=== PATIENT | female | born 1960 | race Caucasian/White ===

== ENCOUNTER → 2016-07-24 | Outpatient (CLI) | payer OTHER ==
[~2016-07-24] MED LIST: ARIP1TAB5 PO; CLON0.1T PO; HYDR1CAP30 PO; IBUP800T23 PO; LISI10TA3 PO; METO25TA3 PO; NITR100C4 PO; REME30TA PO; TRAZ50TA12 PO; VENL75TA PO
[2016-07-24 08:47] LABS: AUTOMATED NEUTROPHIL # 2.5 TH/MM3 (1.8-7.7); BASOPHIL % 0.6 % (0.0-2.0); EOSINOPHIL # 0.1 TH/MM3 (0-0.4); EOSINOPHIL % 1.3 % (0.0-4.0); LYMPH % 32.7 % (9.0-44.0); LYMPHOCYTE # 1.4 TH/MM3 (1.0-4.8); MEAN CELL VOLUME 112.9 FL (80.0-100.0); MEAN CORPUSCULAR HEMOGLOBIN 39.1 PG (27.0-34.0); MEAN CORPUSCULAR HGB CONC 34.6 % (32.0-36.0); NEUT % 59.4 % (16.0-70.0); PLATELET COUNT 45 TH/MM3 (150-450); RED BLOOD COUNT 3.28 MIL/MM3 (4.00-5.30); RED CELL DISTRIBUTION WIDTH 14.8 % (11.6-17.2); WHITE BLOOD COUNT 4.2 TH/MM3 (4.0-11.0)
[2016-07-24 08:52] LABS: HEMO FLAGS AUTO DIFF
[2016-07-24 09:12] LABS: ALKALINE PHOSPHATASE 123 U/L (45-117); ALT (GPT) 67 U/L (10-53); ANION GAP 9 MEQ/L (5-15); AST (GOT) 90 U/L (15-37); BLOOD UREA NITROGEN 9 MG/DL (7-18); CHLORIDE 102 MEQ/L (98-107); GLOMERULAR FILTRATION RATE 68 ML/MIN (>89); GLUCOSE,FASTING 121 MG/DL (74-99); HDL CHOLESTEROL 15.1 MG/DL (40.0-60.0); LDL CHOLESTEROL 95 MG/DL (0-99); POTASSIUM 3.9 MEQ/L (3.5-5.1); SODIUM (NA) 137 MEQ/L (136-145); TOTAL BILIRUBIN ADULT 1.5 MG/DL (0.2-1.0)
[2016-07-24 09:36] LABS: PLATELET ESTIMATE SMEAR LOW (NORMAL); PLATELET MORPHOLOGY NORMAL (NORMAL); SCAN/DIFF AUTO DIFF CONFIRMED; TARGET CELLS 1+ (NORMAL)
== END ==
LOC: CLAB 08:27
PROVIDERS: ATTEND Family Medicine
DX: F10.20 Alcohol dependence, uncomplicated (principal); L82.1 Other seborrheic keratosis; F32.9 Major depressive disorder, single episode, unspecified; F91.9 Conduct disorder, unspecified; F17.200 Nicotine dependence, unspecified, uncomplicated; Z59.0 Homelessness
CPT/HCPCS: 36415; 80053; 80061; 84443; 85025

== ENCOUNTER 2016-11-05 08:48 | Emergency (ER) | payer OTHER ==
[~2016-11-05] VITALS: Ht 157.5 cm; Wt 91.0 kg
[~2016-11-05 08:48] MED LIST changes: -CLON0.1T PO; -NITR100C4 PO; -REME30TA PO
[2016-11-05 08:54] VITALS: BP 112/65; PULSE 81; RESP 18; TEMP 97.7; O2SAT 89
[2016-11-05 09:02] VITALS: BP 112/65; PULSE 79; RESP 18; TEMP 97.7; O2SAT 96
[2016-11-05] MEDS ORDERED: SODIUM CHLORIDE 0.9% FLUSH 10 ML FLUSH IVF PRN ×2 (09:15→09:45)
[2016-11-05] MEDS ORDERED: MORPHINE SULFATE 4 MG/ML INJ IV PUSH ONE (09:15)
[2016-11-05] MEDS ORDERED: ONDANSETRON HCL 4 MG/2 ML VIAL IV PUSH ONE (09:15)
[2016-11-05 09:52] VITALS: O2SAT 97
[2016-11-05 09:56] LABS: AUTOMATED NEUTROPHIL # 1.9 TH/MM3 (1.8-7.7); BASOPHIL % 0.3 % (0.0-2.0); EOSINOPHIL # 0.3 TH/MM3 (0-0.4); EOSINOPHIL % 5.3 % (0.0-4.0); HEMATOCRIT 37.1 % (35.0-46.0); HEMO FLAGS DIFF FINAL; LYMPH % 58.6 % (9.0-44.0); LYMPHOCYTE # 3.5 TH/MM3 (1.0-4.8); MEAN CELL VOLUME 108.9 FL (80.0-100.0); MEAN CORPUSCULAR HEMOGLOBIN 35.9 PG (27.0-34.0); MONO % 3.9 % (0.0-8.0); NEUT % 31.9 % (16.0-70.0); PLATELET COUNT 114 TH/MM3 (150-450); RED CELL DISTRIBUTION WIDTH 14.1 % (11.6-17.2); WHITE BLOOD COUNT 6.1 TH/MM3 (4.0-11.0)
[2016-11-05 10:12] LABS: MUCUS URINE FEW /lpf (OCC); SQUAMOUS EPITHELIAL CELL URINE 1 /hpf (0-5)
[2016-11-05 10:14] LABS: BACTERIA, URINE MANY /hpf; BLOOD, URINE NEG (NEG); GLUCOSE,URINE NEG (NEG); HYALINE CAST, URINE 3 /lpf (RARE); KETONE, URINE NEG (NEG); URINE COLOR YELLOW (YELLW/STRAW)
[2016-11-05] MEDS ORDERED: TETANUS/DIPHTHERIA TOXOID ADULT 0.5 ML VIAL IM ONE (10:15)
[2016-11-05 10:16] LABS: NITRITE,URINE POS (NEG)
[2016-11-05 10:17] LABS: AMPHETAMINE, URINE NEG (NEG); BARBITURATES, URINE NEG (NEG); COCAINE, URINE POS (NEG); COMMENT (UR) CATH-CULTURE IND; CULTURE IF INDICATED CATH CULTURE IND
[2016-11-05 10:30] VITALS: BP 117/67; PULSE 72; RESP 18; TEMP 97.7; O2SAT 97
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
[2016-11-05] MEDS ORDERED: NITROFURANTOIN MONOHYD MACROCR 100 MG CAP PO ONE (11:00)
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
[2016-11-05 12:05] LABS: ALKALINE PHOSPHATASE 104 U/L (45-117); ALT (GPT) 63 U/L (10-53); ANION GAP 6 MEQ/L (5-15); AST (GOT) 97 U/L (15-37); BICARBONATE 31.4 MEQ/L (21.0-32.0); CHLORIDE 109 MEQ/L (98-107); GLOMERULAR FILTRATION RATE 81 ML/MIN (>89); POTASSIUM 4.8 MEQ/L (3.5-5.1); SODIUM (NA) 146 MEQ/L (136-145); TOTAL BILIRUBIN ADULT 0.4 MG/DL (0.2-1.0)
[2016-11-05 12:06] LABS: BLOOD UREA NITROGEN 17 MG/DL (7-18); CREATINE KINASE 179 U/L (26-192)
[2016-11-05 12:53] VITALS: BP 112/71; PULSE 76; RESP 18; O2SAT 96
[2016-11-05] MEDS ORDERED: SODIUM CHLOR 0.9% 1000 ML INJ 1,000 ML IV ONE (13:30)
[2016-11-05 16:30] VITALS: BP 115/74; PULSE 71; RESP 18; O2SAT 96
[2016-11-05] MEDS ORDERED: LORazepam 2 MG/ML VIAL IV PUSH PRN ×4 (21:45)
[2016-11-05] MEDS ORDERED: LORazepam 2 MG TAB PO PRN (21:45)
[2016-11-05] MEDS ORDERED: FLUMAZENIL 0.5 MG/5 ML VIAL IV PUSH PRN (21:45)
[2016-11-05] MEDS ORDERED: LORazepam 1 MG TAB PO PRN (21:45)
[2016-11-06] MEDS ORDERED: NITR100C4 PO (06:35)
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
[2016-11-06] MEDS ORDERED: NITROFURANTOIN MONOHYD MACROCR 100 MG CAP PO ONE (06:45)
[2016-11-06 07:20] VITALS: BP 159/104; PULSE 80; RESP 18; O2SAT 94
[2016-11-06 09:08] VITALS: BP 173/88; PULSE 96; RESP 20; O2SAT 96
[2016-11-06 10:42] VITALS: BP 213/98; PULSE 85; RESP 18; TEMP 98.1; O2SAT 96
[2016-11-06] MEDS ORDERED: LORazepam 2 MG TAB PO ONE (11:00)
[2016-11-06] MEDS ORDERED: cloNIDine HCL 0.1 MG TAB PO ONE (11:00)
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
--- NOTE | 2016-11-06 14:25 | EKG ---
Date Performed: 11/05/2016 Time Performed: 09:00:53 PTAGE: 56 years EKG: Sinus rhythm INCOMPLETE RIGHT BUNDLE BRANCH BLOCK Compared to prior tracing no significant change BORDERLINE ECG PREVIOUS TRACING : 04/08/16 DOCTOR: Michael Raya Interpretating Date/Time 11/06/2016 14:24:46
== END 2016-11-06 14:25 | disposition home or self-care (01) ==
LOC: NEPC 08:48 → NEPJ 11-06 14:25
DX: S00.81XA Abrasion of other part of head, initial encounter (principal); E86.0 Dehydration; E87.0 Hyperosmolality and hypernatremia; F43.25 Adjustment disorder with mixed disturbance of emotions and conduct; N39.0 Urinary tract infection, site not specified; B96.20 Unspecified Escherichia coli [E. coli] as the cause of diseases classified elsewhere; F17.200 Nicotine dependence, unspecified, uncomplicated; I10 Essential (primary) hypertension; I45.10 Unspecified right bundle-branch block; R07.9 Chest pain, unspecified; F10.129 Alcohol abuse with intoxication, unspecified; F10.14 Alcohol abuse with alcohol-induced mood disorder; Y90.8 Blood alcohol level of 240 mg/100 ml or more; Y09 Assault by unspecified means; Z23 Encounter for immunization; Z79.899 Other long term (current) drug therapy
CPT/HCPCS: 70450; 71010; 72125; 80053; 80307; 81001; 82550; 84484; 85025; 87077; 87086; 87186; 90471; 90714; 93005; 96360; 99285; J7030

== ENCOUNTER 2016-11-14 14:37 | Emergency (ER) | payer OTHER ==
[~2016-11-14 14:37] MED LIST changes: -IBUP800T23 PO; -METO25TA3 PO; +NITR100C4 PO
[2016-11-14 15:34] VITALS: BP 144/74; PULSE 92; RESP 18; TEMP 98.1; O2SAT 93
[2016-11-14] MEDS ORDERED: CLON0.1T PO (16:26)
[2016-11-14] MEDS ORDERED: LORazepam 2 MG/ML VIAL IV PUSH ONE (16:30)
--- NOTE | 2016-11-14 16:38 | PD ---
HPI Chief Complaint: Psychiatric Symptoms Time Seen by Provider: 16:27 Travel History International Travel<30 days: No Contact w/Intl Traveler<30days: No Traveled to known affect area: No History of Present Illness HPI 56 years old female was Micky acted for suicidal threat. Patient has history alcohol abuse and lasting drink was last night. Patient states that she started feeling shaky today. Patient was Micky acted after threaten suicidal at home today. Patient denies any headache. Patient denies any chest pain or shortness of breath. Patient denies abdominal pain. Patient denies any nausea vomiting diarrhea. Patient denies any fever chills. Patient was evaluated recently in emergency room for adjustment disorder with mixed disturbance of emotions and conduct, alcohol abuse and alcohol-induced mood disorder. Patient states that she has history hypertension however has not been taking her blood pressure medications for the past few days. Patient however denies any suicidal threat while in the ED. PFSH Past Medical History Arthritis: Yes (OSTEO) Anxiety: Yes Depression: Yes Cardiovascular Problems: Yes COPD: Yes Cerebrovascular Accident: No Diminished Hearing: No GERD: No Hepatitis: Yes (HEP C) Hypertension: Yes Neurologic: Yes Psychiatric: Yes Respiratory: Yes Immunizations Current: Yes Myocardial Infarction: No Seizures: No Ulcer: No Tetanus Vaccination: < 5 Years ?: Not Menopausal: Yes : 0 Para: 0 Miscarriage: 0 : 0 Past Surgical History Surgical History: No Previous Surgery Social History Alcohol Use: Yes (DAILY) Tobacco Use: Yes (1 ppd) Substance Use: No Allergies-Medications (Allergen,Severity, Reaction): Coded Allergies: No Known Allergies (Unverified , 08/14/16) Reported Meds & Prescriptions Reported Meds & Active Scripts Active Lisinopril 10 Mg Tab 10 Mg PO DAILY Reported Clonidine (Clonidine HCl) 0.1 Mg Tab 0.1 Mg PO BID Hydroxyzine Pamoate 25 Mg Cap 25 Mg PO TID PRN Trazodone (Trazodone HCl) 50 Mg Tab 50 Mg PO HS Abilify (Aripiprazole) 10 Mg Tab 30 Mg PO DAILY Effexor (Venlafaxine HCl) 75 Mg Tab 150 Mg PO DAILY Review of Systems General / Constitutional: No: Fever Eyes: No: Visual changes HENT: No: Headaches Cardiovascular: No: Chest Pain or Discomfort Respiratory: No: Shortness of Breath Gastrointestinal: No: Abdominal Pain Genitourinary: No: Dysuria Musculoskeletal: No: Pain Skin: No Rash Neurologic: No: Weakness Psychiatric: No: Depression Endocrine: No: Polydipsia Hematologic/Lymphatic: No: Easy Bruising Physical Exam Narrative GENERAL: Well-nourished, well-developed patient. SKIN: Focused skin assessment warm/dry. HEAD: Normocephalic. EYES: No scleral icterus. No injection or drainage. NECK: Supple, trachea midline. No JVD or lymphadenopathy. CARDIOVASCULAR: Regular rate and rhythm without murmurs, gallops, or rubs. RESPIRATORY: Breath sounds equal bilaterally. No accessory muscle use. GASTROINTESTINAL: Abdomen soft, non-tender, nondistended. MUSCULOSKELETAL: No cyanosis, or edema. BACK: Nontender without obvious deformity. No CVA tenderness. Neurologic exam: Patient's awake and alert oriented 3. Patient moves all extremities well. No obvious focal neurological deficit. Data Data Last Documented VS Vital Signs Date Time Temp Pulse Resp B/P Pulse Ox O2 Delivery O2 Flow Rate FiO2 11/14/16 15:34 98.1 92 18 144/74 93 Orders Complete Blood Count With Diff (11/14/16 16:29) Comprehensive Metabolic Panel (11/14/16 16:29) Urinalysis - C+S If Indicated (11/14/16 16:29) Psych Screen (11/14/16 16:29) Drug Screen, Random Urine (11/14/16 16:29) Alcohol (Ethanol) (11/14/16 16:29) Lorazepam Inj (Ativan Inj) (11/14/16 16:30) MDM Medical Decision Making Medical Screen Exam Complete: Yes Emergency Medical Condition: Yes Medical Record Reviewed: Yes Differential Diagnosis Differential diagnosis including adjustment disorder, depression, suicidal, substance-induced mood disorder. Narrative Course 56 years old male female was Weeks acted for making suicidal threats. Patient with history of adjustment disorder and mixed disturbance of emotions and conduct. Patient also has history alcohol abuse. Patient feeling shaky now. Patient probably in alcohol withdrawal. Ativan 1 mg IV given. Giovanni Hardwick MD Nov 14, 2016 16:38
[2016-11-14 16:45] LABS: AUTOMATED NEUTROPHIL # 1.8 TH/MM3 (1.8-7.7); BASOPHIL % 0.6 % (0.0-2.0); EOSINOPHIL # 0.2 TH/MM3 (0-0.4); EOSINOPHIL % 2.9 % (0.0-4.0); HEMATOCRIT 39.1 % (35.0-46.0); LYMPH % 65.9 % (9.0-44.0); LYMPHOCYTE # 4.6 TH/MM3 (1.0-4.8); MEAN CELL VOLUME 106.7 FL (80.0-100.0); MEAN CORPUSCULAR HEMOGLOBIN 35.9 PG (27.0-34.0); MEAN CORPUSCULAR HGB CONC 33.7 % (32.0-36.0); NEUT % 25.6 % (16.0-70.0); RED BLOOD COUNT 3.66 MIL/MM3 (4.00-5.30); RED CELL DISTRIBUTION WIDTH 14.8 % (11.6-17.2)
[2016-11-14 16:46] VITALS: BP 123/66; PULSE 93; RESP 17; O2SAT 98
[2016-11-14 16:51] LABS: HEMO FLAGS AUTO DIFF
[2016-11-14 16:56] LABS: BLOOD, URINE NEG (NEG); COMMENT (UR) CULT NOT INDICATED; CULTURE IF INDICATED CULT NOT INDICATED; GLUCOSE,URINE NEG (NEG); HYALINE CAST, URINE 1 /lpf (RARE); KETONE, URINE NEG (NEG); MUCUS URINE FEW /lpf (OCC); NITRITE,URINE NEG (NEG); SQUAMOUS EPITHELIAL CELL URINE 3 /hpf (0-5); URINE COLOR YELLOW (YELLW/STRAW)
[2016-11-14 16:57] LABS: AMPHETAMINE, URINE NEG (NEG); BARBITURATES, URINE NEG (NEG); COCAINE, URINE NEG (NEG)
[2016-11-14 17:07] LABS: ALKALINE PHOSPHATASE 111 U/L (45-117); TOTAL BILIRUBIN ADULT 1.1 MG/DL (0.2-1.0)
[2016-11-14 17:10] LABS: ALT (GPT) 68 U/L (10-53); ANION GAP 7 MEQ/L (5-15); AST (GOT) 112 U/L (15-37); BICARBONATE 27.9 MEQ/L (21.0-32.0); BLOOD UREA NITROGEN 16 MG/DL (7-18); CHLORIDE 107 MEQ/L (98-107); GLOMERULAR FILTRATION RATE 74 ML/MIN (>89); POTASSIUM 4.3 MEQ/L (3.5-5.1); SODIUM (NA) 142 MEQ/L (136-145)
[2016-11-14 17:17] LABS: PLATELET COUNT 75 TH/MM3 (150-450); TARGET CELLS 1+ (NORMAL)
[2016-11-14 17:18] LABS: SCAN/DIFF AUTO DIFF CONFIRMED
--- NOTE | 2016-11-14 17:20 | PD ---
Physical Exam Date Seen by Provider: Nov 14, 2016 Time Seen by Provider: 17:18 Narrative 56-year-old female came to the emergency room with history of making suicidal comments. Patient was brought in as a Weeks act. Case was signed out to me to follow-up on the blood test results. The test results just came back and patient is intoxicated with marijuana positive. She did get benzo because she was complaining that she is shaking. Her urine drug screen is positive for benzo as well. I have given her an oral dose of calcium. Her calcium was slightly low. I have medically cleared her otherwise. She needs to be seen by psych for a psych screen. Data Data Last Documented VS Orders Complete Blood Count With Diff (11/14/16 16:29) Comprehensive Metabolic Panel (11/14/16 16:29) Urinalysis - C+S If Indicated (11/14/16 16:29) Psych Screen (11/14/16 16:29) Drug Screen, Random Urine (11/14/16 16:29) Alcohol (Ethanol) (11/14/16 16:29) Lorazepam Inj (Ativan Inj) (11/14/16 16:30) Calcium Carbonate Chew (Tums Chew) (11/14/16 17:30) Diet Regular Basic (11/14/16 Dinner) Alcohol Withdrawal Asmt-Ciwa ONCE (11/14/16 18:47) Flumazenil Inj (Romazicon Inj) (11/14/16 19:00) Lorazepam (Ativan) (11/14/16 19:00) Lorazepam Inj (Ativan Inj) (11/14/16 19:00) Lorazepam (Ativan) (11/14/16 19:00) Lorazepam Inj (Ativan Inj) (11/14/16 19:00) Lorazepam Inj (Ativan Inj) (11/14/16 19:00) Lorazepam Inj (Ativan Inj) (11/14/16 19:00) Diet Regular Basic (11/15/16 Breakfast) Clonidine (Catapres) (11/15/16 07:30) Diet Regular Basic (11/15/16 Lunch) Labs [facility] Supervised Visit with KEITH: Lesly Hood MD Nov 14, 2016 17:20 Red Blood Count 3.66 MIL/MM3 Hemoglobin 13.2 GM/DL Hematocrit 39.1 % Mean Corpuscular Volume 106.7 FL Mean Corpuscular Hemoglobin 35.9 PG Mean Corpuscular Hemoglobin 33.7 % Concent Red Cell Distribution Width 14.8 % Mean Platelet Volume 8.4 FL Neutrophils (%) (Auto) 25.6 % Lymphocytes (%) (Auto) 65.9 % Monocytes (%) (Auto) 5.0 % Eosinophils (%) (Auto) 2.9 % Basophils (%) (Auto) 0.6 % Neutrophils # (Auto) 1.8 TH/MM3 Lymphocytes # (Auto) 4.6 TH/MM3 Monocytes # (Auto) 0.3 TH/MM3 Eosinophils # (Auto) 0.2 TH/MM3 Basophils # (Auto) 0.0 TH/MM3 CBC Comment AUTO DIFF Urine Color YELLOW Urine Turbidity CLEAR Urine pH 6.0 Urine Specific [place] 1.022 Urine Protein NEG mg/dL Urine Glucose (UA) NEG mg/dL Urine Ketones NEG mg/dL Urine Occult Blood NEG Urine Nitrite NEG Urine Bilirubin NEG Urine Urobilinogen 8.0 MG/DL Urine Leukocyte Esterase NEG Urine RBC LESS THAN 1 /hpf Urine WBC 1 /hpf Urine Squamous Epithelial 3 /hpf Cells Urine Hyaline Casts 1 /lpf Urine Mucus FEW /lpf Microscopic Urinalysis Comment CULT NOT INDICATED Sodium Level 142 MEQ/L Potassium Level 4.3 MEQ/L Chloride Level 107 MEQ/L Carbon Dioxide Level 27.9 MEQ/L Anion Gap 7 MEQ/L Blood Urea Nitrogen 16 MG/DL Creatinine 0.80 MG/DL Estimat Glomerular Filtration 74 ML/MIN Rate Random Glucose 86 MG/DL Calcium Level 7.9 MG/DL Total Bilirubin 1.1 MG/DL Aspartate Amino Transf 112 U/L (AST/SGOT) Alanine Aminotransferase 68 U/L (ALT/SGPT) Alkaline Phosphatase 111 U/L Total Protein 8.1 GM/DL Albumin 2.7 GM/DL Urine Opiates Screen NEG Urine Barbiturates Screen NEG Urine Amphetamines Screen NEG Urine Benzodiazepines Screen POS Urine Cocaine Screen NEG Urine Cannabinoids Screen POS Ethyl Alcohol Level 222 MG/DL [facility] Supervised Visit with KEITH: Lesly Hood MD Nov 14, 2016 17:20
[2016-11-14] MEDS ORDERED: CALCIUM CARBONATE 500 MG CHEWABLE TAB CHEW ONE (17:30)
[2016-11-14 18:14] VITALS: BP 150/84
[2016-11-14 18:36] VITALS: BP 167/93; PULSE 90; RESP 18; O2SAT 93
[2016-11-14] MEDS ORDERED: LORazepam 2 MG/ML VIAL IV PUSH PRN ×4 (19:00)
[2016-11-14] MEDS ORDERED: FLUMAZENIL 0.5 MG/5 ML VIAL IV PUSH PRN (19:00)
[2016-11-14] MEDS ORDERED: LORazepam 1 MG TAB PO PRN (19:00)
[2016-11-14] MEDS: LORazepam 2 MG TAB PO PRN ×2 (19:37→22:15)
[2016-11-14 22:00] VITALS: BP 154/80; PULSE 90; RESP 19; O2SAT 91
[2016-11-15] VITALS (7 sets, daily range): BP systolic 160–193; BP diastolic 81–100; PULSE 91–120; RESP 18–20; O2SAT 94–98
[2016-11-15] MEDS: LORazepam 2 MG TAB PO PRN ×3 (02:20→14:19)
[2016-11-15] MEDS ORDERED: cloNIDine HCL 0.1 MG TAB PO ONE (07:30)
--- NOTE | 2016-11-15 16:59 | PD ---
History of Present Illness Chief Complaint: Psychiatric Symptoms Time Seen by Provider: 14:45 Travel History International Travel<30 Days: No Contact w/Intl Traveler<30days: No Known affected area: No Legal Status Legal Status: Weeks Act Weeks Act Signed By: Niurka Weeks Act Comment: 11/14/16 1405 PM History of Present Illness: 56-year-old female with long history of alcohol abuse. Patient is wanting detox and rehabilitation. She denies being suicidal or having suicidal or homicidal ideation, plan or intent. No psychotic symptoms. Cognition is intact and patient is verbally christy for safety. She understands that [facility] act is not taking patient's right now and this facility is not license for alcohol detox and rehabilitation. She would therefore like to go home. PFSH Past Medical History Arthritis: Yes (OSTEO) Anxiety: Yes Depression: Yes Cardiovascular Problems: Yes COPD: Yes Cerebrovascular Accident: No Diminished Hearing: No GERD: No Hepatitis: Yes (HEP C) Hypertension: Yes Neurologic: Yes Psychiatric: Yes Respiratory: Yes Immunizations Current: Yes Myocardial Infarction: No Seizures: No Ulcer: No Tetanus Vaccination: < 5 Years ?: Not Menopausal: Yes : 0 Para: 0 Miscarriage: 0 : 0 Past Surgical History Surgical History: No Previous Surgery Psychiatric History Psychiatric History Hx Psychiatric Treatment: PATIENT HAS A HISTORY OF BEING DIAGNOSED WITH DEPRESSION. PATIENT WAS LAST ADMITTED TO [place] FOR A POSSIBLE OVERDOSE ON 02/18/16 TO 02/20/16. No significant clinical objective evidence of mood disorder at this time. Primary problem appears to be alcoholism. History of Inpatient Treatment: Yes Guns or firearms in home: No Social History Hx Alcohol Use: Yes (DAILY) Hx Tobacco Use: Yes (1 ppd) Hx Substance Use: No Substance Use Type: Alcohol, Benzos (Valium,Xanax) Other Substances Used: cocaine and benzo past. Hx of Substance Use Treatment: Yes Allergies-Medications (Allergen,Severity, Reaction): Coded Allergies: No Known Allergies (Unverified , 08/14/16) Reported Meds & Prescriptions Reported Meds & Active Scripts Active Lisinopril 10 Mg Tab 10 Mg PO DAILY Reported Clonidine (Clonidine HCl) 0.1 Mg Tab 0.1 Mg PO BID Hydroxyzine Pamoate 25 Mg Cap 25 Mg PO TID PRN Trazodone (Trazodone HCl) 50 Mg Tab 50 Mg PO HS Abilify (Aripiprazole) 10 Mg Tab 30 Mg PO DAILY Effexor (Venlafaxine HCl) 75 Mg Tab 150 Mg PO DAILY Review of Systems Except as stated in HPI: all other systems reviewed are Neg Exam Alert: Yes [place]: Person, Place, Date, Situation Mood: Calm Affect: Appropriate Speech: Clear Eye Contact: Normal Memory Intact: Immediate, Recent, Remote Insight/Judgement Adequate MDM Medical Decision Making Medical Record Reviewed: Yes Assessment/Plan Patient admits that she was told by emergency room physician she would be more likely to get a bed for detox and rehabilitation if she claimed to be suicidal. She is denying any suicidal or homicidal ideation, plan or intention at this time. Cognition is intact and she has no psychotic symptoms. She is verbalizing a contract for safety. She would like to go home. She can try calling [facility] in the morning for bed availability. Orders Calcium Carbonate Chew (Tums Chew) (11/14/16 17:30) Diet Regular Basic (11/14/16 Dinner) Alcohol Withdrawal Asmt-Ciwa ONCE (11/14/16 18:47) Flumazenil Inj (Romazicon Inj) (11/14/16 19:00) Lorazepam (Ativan) (11/14/16 19:00) Lorazepam Inj (Ativan Inj) (11/14/16 19:00) Lorazepam (Ativan) (11/14/16 19:00) Lorazepam Inj (Ativan Inj) (11/14/16 19:00) Lorazepam Inj (Ativan Inj) (11/14/16 19:00) Lorazepam Inj (Ativan Inj) (11/14/16 19:00) Diet Regular Basic (11/15/16 Breakfast) Clonidine (Catapres) (11/15/16 07:30) Diet Regular Basic (11/15/16 Lunch) Results Vital Signs Date Time Temp Pulse Resp B/P Pulse Ox O2 Delivery O2 Flow Rate FiO2 11/15/16 15:12 178/88 11/15/16 15:10 178/88 11/15/16 11:24 91 18 181/88 95 Room Air 11/15/16 10:44 91 20 188/81 98 11/15/16 06:58 160/100 11/15/16 06:26 91 18 193/96 94 Room Air 11/15/16 02:00 91 18 184/88 97 Room Air 11/14/16 22:00 90 19 154/80 91 Room Air 11/14/16 18:36 90 18 167/93 93 Room Air 11/14/16 18:14 90 18 150/84 96 Diagnosis Primary Impression: Alcohol abuse Referrals: Ramila Munson MD (PCP) Departure Forms: Tests/Procedures Patient Instructions: General Instructions, Alcohol Intoxication (ED), Abuse of Alcohol (ED), Medical Clearance for Psychiatric Care (ED), Alcohol Dependence (ED) Additional Instructions: DISCHARGE HOME DX. ALCOHOL ABUSE FOLLOW-UP WITH PCP NEEDED RETURN TO ED FOR WORSENING PROBLEMS Disposition: 01 DISCHARGE HOME Condition: Stable Navi Youngblood MD Nov 15, 2016 16:59
== END 2016-11-15 15:38 | disposition home or self-care (01) ==
LOC: NEPD 14:37 → NEPJ 11-15 15:38
DX: F10.10 Alcohol abuse, uncomplicated (principal); F41.9 Anxiety disorder, unspecified; F32.9 Major depressive disorder, single episode, unspecified; J44.9 Chronic obstructive pulmonary disease, unspecified; B19.20 Unspecified viral hepatitis C without hepatic coma; I10 Essential (primary) hypertension; F17.210 Nicotine dependence, cigarettes, uncomplicated; Z79.899 Other long term (current) drug therapy
CPT/HCPCS: 80053; 80307; 81001; 85025; 96374; 99284; J2060

== ENCOUNTER 2016-12-11 11:59 | Inpatient (IN) | payer OTHER ==
[~2016-12-11] VITALS: Ht 157.5 cm; Wt 107.0 kg
[~2016-12-11 11:59] MED LIST changes: +CLON0.1T PO; -NITR100C4 PO
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
[2016-12-11 12:45] VITALS: BP 152/74; PULSE 121; RESP 21; TEMP 103.2; O2SAT 95
[2016-12-11] MEDS ORDERED: VANCOMYCIN INJ 1,000 MG in SODIUM CHLOR 0.9% 250 ML INJ 250 ML IV ONE (12:45)
[2016-12-11] MEDS ORDERED: ACETAMINOPHEN 325 MG TAB PO ONE (12:45)
[2016-12-11] MEDS ORDERED: AMPICILLIN-SULBACTAM INJ 3 GM in SODIUM CHLORIDE 0.9% INJ 100 ML IV ONE (12:45)
[2016-12-11] MEDS ORDERED: SODIUM CHLORIDE 0.9% FLUSH 10 ML FLUSH IVF PRN (12:45)
[2016-12-11] MEDS ORDERED: SODIUM CHLOR 0.9% 1000 ML INJ 1,000 ML IV ONE ×3 (12:45→13:45)
[2016-12-11 12:52] VITALS: BP 152/74; PULSE 121; RESP 21; TEMP 103.2; O2SAT 94
[2016-12-11] MEDS ORDERED: REME30TA PO (13:00)
[2016-12-11 14:06] LABS: AUTOMATED NEUTROPHIL # 7.4 TH/MM3 (1.8-7.7); BASOPHIL % 0.6 % (0.0-2.0); EOSINOPHIL % 0.2 % (0.0-4.0); HEMATOCRIT 37.9 % (35.0-46.0); LYMPH % 6.2 % (9.0-44.0); LYMPHOCYTE # 0.5 TH/MM3 (1.0-4.8); MEAN CELL VOLUME 107.3 FL (80.0-100.0); MEAN CORPUSCULAR HEMOGLOBIN 36.7 PG (27.0-34.0); MEAN CORPUSCULAR HGB CONC 34.2 % (32.0-36.0); MONO % 2.7 % (0.0-8.0); NEUT % 90.3 % (16.0-70.0); PLATELET COUNT 59 TH/MM3 (150-450); RED BLOOD COUNT 3.53 MIL/MM3 (4.00-5.30); RED CELL DISTRIBUTION WIDTH 15.9 % (11.6-17.2); WHITE BLOOD COUNT 8.2 TH/MM3 (4.0-11.0)
[2016-12-11 14:09] LABS: HEMO FLAGS AUTO DIFF
[2016-12-11 14:25] LABS: ALT (GPT) 72 U/L (10-53); ANION GAP 10 MEQ/L (5-15); AST (GOT) 84 U/L (15-37); BICARBONATE 23.8 MEQ/L (21.0-32.0); BLOOD UREA NITROGEN 12 MG/DL (7-18); CHLORIDE 97 MEQ/L (98-107); GLOMERULAR FILTRATION RATE 65 ML/MIN (>89); POTASSIUM 3.7 MEQ/L (3.5-5.1); SODIUM (NA) 131 MEQ/L (136-145)
[2016-12-11 14:27] LABS: ALKALINE PHOSPHATASE 98 U/L (45-117); CREATINE KINASE 159 U/L (26-192); TOTAL BILIRUBIN ADULT 1.1 MG/DL (0.2-1.0)
[2016-12-11] MEDS ORDERED: PIPERACIL-TAZO 4.5 GM PREMIX 100 ML IV ONE (14:45)
[2016-12-11 14:53] LABS: PLATELET ESTIMATE SMEAR LOW (NORMAL); PLATELET MORPHOLOGY NORMAL (NORMAL); SCAN/DIFF AUTO DIFF CONFIRMED; TARGET CELLS 1+ (NORMAL)
[2016-12-11 15:13] LABS: BACTERIA, URINE RARE /hpf; BLOOD, URINE NEG (NEG); COMMENT (UR) CULT NOT INDICATED; CULTURE IF INDICATED CULT NOT INDICATED; GLUCOSE,URINE NEG (NEG); KETONE, URINE NEG (NEG); NITRITE,URINE NEG (NEG); PH, URINE 5.5 (5.0-8.5); SQUAMOUS EPITHELIAL CELL URINE 2 /hpf (0-5); URINE COLOR YELLOW (YELLW/STRAW)
[2016-12-11 15:16] VITALS: BP 129/72; PULSE 112; RESP 20; TEMP 102.5; O2SAT 96
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
[2016-12-11 15:21] LABS: AMPHETAMINE, URINE NEG (NEG); BARBITURATES, URINE NEG (NEG); COCAINE, URINE NEG (NEG)
[2016-12-11] MEDS ORDERED: BISACODYL 10 MG SUPP RECTAL PRN (16:00)
[2016-12-11] MEDS ORDERED: LACTULOSE SYRUP 20 GM/30 ML CUP PO PRN (16:00)
[2016-12-11] MEDS ORDERED: Vancomycin Consult Pharmacy 1 EA OTHER SCH (16:00)
[2016-12-11] MEDS ORDERED: LORazepam 2 MG/ML VIAL IV PUSH PRN ×4 (16:00)
[2016-12-11] MEDS ORDERED: NALOXONE HCL 0.4 MG/ML AMP IV PRN (16:00)
[2016-12-11] MEDS ORDERED: SENNOSIDES 8.6 MG TAB PO PRN (16:00)
[2016-12-11] MEDS ORDERED: ONDANSETRON HCL 4 MG/2 ML VIAL IVP PRN (16:00)
[2016-12-11] MEDS ORDERED: ACETAMINOPHEN 325 MG TAB PO PRN (16:00)
[2016-12-11] MEDS ORDERED: FLUMAZENIL 0.5 MG/5 ML VIAL IV PUSH PRN (16:00)
[2016-12-11] MEDS ORDERED: LORazepam 2 MG TAB PO PRN (16:00)
[2016-12-11] MEDS ORDERED: HALOPERIDOL LACTATE 5 MG/ML AMP IM PRN (16:00)
[2016-12-11] MEDS ORDERED: VANCOMYCIN INJ 1,000 MG in SODIUM CHLOR 0.9% 250 ML INJ 250 ML IV SCH (16:00)
[2016-12-11] MEDS ORDERED: IBUPROFEN 800 MG TAB PO ONE (16:30)
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
--- NOTE | 2016-12-11 16:53 | RADRPT ---
EXAM DATE/TIME: 12/11/2016 16:28 [facility] COMPARISON: CHEST SINGLE AP, November 05, 2016, 9:59. INDICATIONS : Chest pain. MEDICAL HISTORY : Chronic obstructive pulmonary disease. Cirrhosis. SURGICAL HISTORY : None. ENCOUNTER: Initial ACUITY: 1 day PAIN SCORE: 10/10 LOCATION: middle chest. FINDINGS: PA and lateral views of the chest demonstrate the lungs to be symmetrically aerated without evidence of mass, infiltrate or effusion. The cardiomediastinal contours are unremarkable. Osseous structure s are intact. CONCLUSION: Normal examination. Josue Carter MD on December 11, 2016 at 16:51 Board Certified Radiologist. This report was verified electronically.
[2016-12-11] MEDS: SODIUM CHLOR 0.9% 1000 ML INJ 1,000 ML IV SCH ×2 (17:04→22:41)
[2016-12-11] MEDS: NICOTINE 21 MG/24 HR PATCH T-DERMAL SCH (17:04)
[2016-12-11 17:54] VITALS: BP 142/97
[2016-12-11 20:00] VITALS: BP 105/58; PULSE 87; RESP 20; TEMP 98.2; O2SAT 94
[2016-12-11] MEDS: REMOVE OLD PATCH T-DERMAL SCH (21:00)
[2016-12-11] MEDS ORDERED: PHARMACY ORDERED LAB ONE (22:15)
[2016-12-11] MEDS: MIRTAZAPINE ODT 30 MG TAB PO SCH (22:33)
[2016-12-11] MEDS: cloNIDine HCL 0.1 MG TAB PO SCH (22:33)
[2016-12-11] MEDS: SODIUM CHLORIDE 0.9% FLUSH 10 ML FLUSH IV FLUSH SCH (22:33)
[2016-12-11] MEDS: traZODone HCL 50 MG TAB PO SCH (22:33)
[2016-12-11] MEDS: DOCUSATE SODIUM 50 MG/SENNA 8.6 MG TAB PO SCH (22:33)
[2016-12-11] MEDS: PIPERACIL-TAZO 3.375 GM PREMIX 50 ML IV SCH (22:35)
[2016-12-11] MEDS: LORazepam 1 MG TAB PO PRN (22:39)
[2016-12-12] VITALS: BP 126/57; PULSE 77; RESP 20; TEMP 98.6; O2SAT 96
[2016-12-12] MEDS ORDERED: VANCOMYCIN INJ 1,500 MG in SODIUM CHLORID 0.9% 500 ML INJ 500 ML IV SCH (02:00)
[2016-12-12] MEDS: PIPERACIL-TAZO 3.375 GM PREMIX 50 ML IV SCH ×4 (03:28→23:01)
[2016-12-12 04:00] VITALS: BP 97/56; PULSE 74; RESP 20; TEMP 97.5; O2SAT 96
[2016-12-12] MEDS: SODIUM CHLOR 0.9% 1000 ML INJ 1,000 ML IV SCH ×3 (06:20→17:20)
[2016-12-12 08:00] VITALS: BP 109/58; PULSE 86; RESP 17; TEMP 97.6; O2SAT 94
[2016-12-12] MEDS: cloNIDine HCL 0.1 MG TAB PO SCH ×2 (08:00→23:00)
[2016-12-12] MEDS: THIAMINE HCL 100 MG TAB PO SCH (08:03)
[2016-12-12] MEDS: SODIUM CHLORIDE 0.9% FLUSH 10 ML FLUSH IV FLUSH SCH ×2 (08:03→21:00)
[2016-12-12] MEDS: DOCUSATE SODIUM 50 MG/SENNA 8.6 MG TAB PO SCH ×2 (08:03→23:00)
[2016-12-12] MEDS: FOLIC ACID 1 MG TAB PO SCH (08:03)
[2016-12-12] MEDS: MULTIVITAMINS/MINERALS THERAPEUTIC TAB PO SCH (08:03)
[2016-12-12] MEDS: ARIPiprazole 30 MG TAB PO SCH (08:03)
[2016-12-12] MEDS: VENLAFAXINE HCL XR 75 MG CAP PO SCH (08:03)
[2016-12-12] MEDS: NICOTINE 21 MG/24 HR PATCH T-DERMAL SCH (08:04)
[2016-12-12] MEDS: LORazepam 1 MG TAB PO PRN ×2 (08:08→12:02)
[2016-12-12 08:28] LABS: HEMATOCRIT 33.1 % (35.0-46.0); MEAN CELL VOLUME 107.5 FL (80.0-100.0); MEAN CORPUSCULAR HEMOGLOBIN 37.1 PG (27.0-34.0); MEAN CORPUSCULAR HGB CONC 34.5 % (32.0-36.0); PLATELET COUNT 34 TH/MM3 (150-450); RED BLOOD COUNT 3.08 MIL/MM3 (4.00-5.30); WHITE BLOOD COUNT 10.3 TH/MM3 (4.0-11.0)
[2016-12-12 08:56] LABS: REVIEW FLAG FINAL
[2016-12-12 09:00] LABS: BICARBONATE 23.9 MEQ/L (21.0-32.0); POTASSIUM 3.3 MEQ/L (3.5-5.1)
[2016-12-12] MEDS ORDERED: VENLAFAXINE 150 MG PO SCH (09:00)
[2016-12-12 09:19] LABS: CALCIUM-PROTEIN CORRECTED 7.5 MG/DL (8.5-10.1)
[2016-12-12] MEDS ORDERED: SODIUM CHLOR 0.9% 1000 ML INJ 1,000 ML IV ONE (11:00)
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
[2016-12-12] MEDS ORDERED: ACETAMINOPHEN/HYDROcodone 325 MG/5 MG TAB PO PRN (11:30)
[2016-12-12] MEDS ORDERED: POTASSIUM CHLORIDE 20 MEQ CONTROLLED RELEASE TAB PO ONE (11:45)
[2016-12-12] MEDS: ACETAMINOPHEN/HYDROcodone 325 MG/5 MG TAB PO PRN ×2 (11:54→23:01)
[2016-12-12 12:00] VITALS: BP 128/59; PULSE 87; RESP 17; TEMP 97.2; O2SAT 96
[2016-12-12] MEDS ORDERED: CALCIUM GLUCONATE INJ 1 GM in SODIUM CHLORIDE 0.9% INJ 100 ML IV ONE (13:00)
[2016-12-12] MEDS: VANCOMYCIN INJ 1,500 MG in SODIUM CHLORID 0.9% 500 ML INJ 500 ML IV SCH (13:49)
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
[2016-12-12 16:00] VITALS: BP 149/61; PULSE 84; RESP 16; TEMP 97.9; O2SAT 95
[2016-12-12 20:00] VITALS: BP 122/66; PULSE 90; RESP 20; TEMP 99.6; O2SAT 94
[2016-12-12] MEDS: traZODone HCL 50 MG TAB PO SCH (23:00)
[2016-12-12] MEDS: MIRTAZAPINE ODT 30 MG TAB PO SCH (23:00)
[2016-12-12] MEDS: REMOVE OLD PATCH T-DERMAL SCH (23:03)
[2016-12-13] VITALS (7 sets, daily range): BP systolic 137–168; BP diastolic 70–95; PULSE 88–101; RESP 18–22; TEMP 97.8–99.4; O2SAT 94–95
[2016-12-13] MEDS: VANCOMYCIN INJ 1,500 MG in SODIUM CHLORID 0.9% 500 ML INJ 500 ML IV SCH ×2 (02:58→14:00)
[2016-12-13] MEDS: SODIUM CHLOR 0.9% 1000 ML INJ 1,000 ML IV SCH ×3 (02:59→14:53)
[2016-12-13] MEDS: PIPERACIL-TAZO 3.375 GM PREMIX 50 ML IV SCH ×2 (05:23→08:58)
[2016-12-13] MEDS: SODIUM CHLORIDE 0.9% FLUSH 10 ML FLUSH IV FLUSH SCH ×2 (08:20→20:49)
[2016-12-13] MEDS: THIAMINE HCL 100 MG TAB PO SCH (08:22)
[2016-12-13] MEDS: FOLIC ACID 1 MG TAB PO SCH (08:22)
[2016-12-13] MEDS: DOCUSATE SODIUM 50 MG/SENNA 8.6 MG TAB PO SCH ×2 (08:22→20:46)
[2016-12-13] MEDS: VENLAFAXINE HCL XR 75 MG CAP PO SCH (08:22)
[2016-12-13] MEDS: cloNIDine HCL 0.1 MG TAB PO SCH ×2 (08:22→20:47)
[2016-12-13] MEDS: ARIPiprazole 30 MG TAB PO SCH (08:22)
[2016-12-13] MEDS: MULTIVITAMINS/MINERALS THERAPEUTIC TAB PO SCH (08:23)
[2016-12-13] MEDS: NICOTINE 21 MG/24 HR PATCH T-DERMAL SCH (08:23)
[2016-12-13 11:02] LABS: HEMATOCRIT 32.9 % (35.0-46.0); MEAN CORPUSCULAR HEMOGLOBIN 36.5 PG (27.0-34.0); MEAN CORPUSCULAR HGB CONC 33.5 % (32.0-36.0); PLATELET COUNT 35 TH/MM3 (150-450); RED BLOOD COUNT 3.02 MIL/MM3 (4.00-5.30); RED CELL DISTRIBUTION WIDTH 15.7 % (11.6-17.2); WHITE BLOOD COUNT 6.8 TH/MM3 (4.0-11.0)
[2016-12-13] MEDS: LORazepam 1 MG TAB PO PRN ×2 (11:06→20:58)
[2016-12-13] MEDS: ACETAMINOPHEN/HYDROcodone 325 MG/5 MG TAB PO PRN ×2 (11:06→20:45)
[2016-12-13 11:15] LABS: REVIEW FLAG FINAL
[2016-12-13 11:23] LABS: BICARBONATE 21.1 MEQ/L (21.0-32.0); POTASSIUM 3.8 MEQ/L (3.5-5.1)
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
[2016-12-13 12:02] LABS: CALCIUM-PROTEIN CORRECTED 7.3 MG/DL (8.5-10.1)
[2016-12-13] MEDS: CALCIUM CARBONATE 1.25 GM (CA 500 MG) TAB PO SCH ×2 (12:06→20:45)
[2016-12-13] MEDS ORDERED: PHARMACY ORDERED LAB ONE (13:45)
[2016-12-13] MEDS ORDERED: AMPICILLIN-SULBACTAM INJ 3 GM VIAL IM SCH (14:00)
[2016-12-13] MEDS: CLINDAMYCIN INJ 900 MG in SODIUM CHLORIDE 0.9% INJ 100 ML IV SCH (16:00)
[2016-12-13] MEDS: AMPICILLIN/SULBAC 3 GM/NS 100 ML IV SCH ×2 (16:00)
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
[2016-12-13] MEDS: traZODone HCL 50 MG TAB PO SCH (20:46)
[2016-12-13] MEDS: MIRTAZAPINE ODT 30 MG TAB PO SCH (20:48)
[2016-12-13] MEDS: REMOVE OLD PATCH T-DERMAL SCH (20:49)
[2016-12-14] VITALS (7 sets, daily range): BP systolic 139–175; BP diastolic 60–81; PULSE 76–89; RESP 17–20; TEMP 97.8–98.3; O2SAT 90–95
[2016-12-14] MEDS: AMPICILLIN/SULBAC 3 GM/NS 100 ML IV SCH ×10 (00:11→21:47)
[2016-12-14] MEDS: CLINDAMYCIN INJ 900 MG in SODIUM CHLORIDE 0.9% INJ 100 ML IV SCH ×3 (00:18→16:23)
[2016-12-14] MEDS: SODIUM CHLOR 0.9% 1000 ML INJ 1,000 ML IV SCH ×2 (04:54→05:00)
[2016-12-14] MEDS: ACETAMINOPHEN/HYDROcodone 325 MG/5 MG TAB PO PRN ×4 (05:03→21:46)
[2016-12-14] MEDS: SODIUM CHLORIDE 0.9% FLUSH 10 ML FLUSH IV FLUSH SCH ×2 (09:00→21:00)
[2016-12-14] MEDS: ARIPiprazole 30 MG TAB PO SCH (09:00)
[2016-12-14] MEDS: DOCUSATE SODIUM 50 MG/SENNA 8.6 MG TAB PO SCH ×2 (09:11→21:45)
[2016-12-14] MEDS: MULTIVITAMINS/MINERALS THERAPEUTIC TAB PO SCH (09:11)
[2016-12-14] MEDS: CALCIUM CARBONATE 1.25 GM (CA 500 MG) TAB PO SCH ×2 (09:11→21:00)
[2016-12-14] MEDS: FOLIC ACID 1 MG TAB PO SCH (09:11)
[2016-12-14] MEDS: VENLAFAXINE HCL XR 75 MG CAP PO SCH (09:11)
[2016-12-14] MEDS: MAGNESIUM HYDROXIDE SUSP 30 ML CUP PO PRN (09:11)
[2016-12-14] MEDS: NICOTINE 21 MG/24 HR PATCH T-DERMAL SCH (09:11)
[2016-12-14] MEDS: cloNIDine HCL 0.1 MG TAB PO SCH ×2 (09:11→21:00)
[2016-12-14] MEDS: THIAMINE HCL 100 MG TAB PO SCH (09:11)
[2016-12-14] MEDS ORDERED: CALCIUM GLUCONATE INJ 1 GM in SODIUM CHLORIDE 0.9% INJ 100 ML IV ONE (10:00)
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
[2016-12-14] MEDS: LISINOPRIL 10 MG TAB PO SCH (11:43)
[2016-12-14 16:15] LABS: HEMATOCRIT 34.6 % (35.0-46.0); MEAN CELL VOLUME 109.2 FL (80.0-100.0); MEAN CORPUSCULAR HEMOGLOBIN 35.9 PG (27.0-34.0); MEAN CORPUSCULAR HGB CONC 32.9 % (32.0-36.0); PLATELET COUNT 43 TH/MM3 (150-450); RED BLOOD COUNT 3.17 MIL/MM3 (4.00-5.30); RED CELL DISTRIBUTION WIDTH 15.4 % (11.6-17.2); WHITE BLOOD COUNT 4.5 TH/MM3 (4.0-11.0)
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
[2016-12-14 16:17] LABS: REVIEW FLAG FINAL
[2016-12-14 16:56] LABS: BICARBONATE 23.4 MEQ/L (21.0-32.0); POTASSIUM 3.9 MEQ/L (3.5-5.1)
[2016-12-14] MEDS: REMOVE OLD PATCH T-DERMAL SCH (21:00)
[2016-12-14] MEDS: hydrOXYzine PAMOATE 25 MG CAP PO PRN (21:46)
[2016-12-14] MEDS: MIRTAZAPINE ODT 30 MG TAB PO SCH (21:46)
[2016-12-14] MEDS: traZODone HCL 50 MG TAB PO SCH (21:46)
[2016-12-15] VITALS (8 sets, daily range): BP systolic 128–182; BP diastolic 59–83; PULSE 69–83; RESP 17–23; TEMP 97.5–98.4; O2SAT 93–99
[2016-12-15] MEDS: CLINDAMYCIN INJ 900 MG in SODIUM CHLORIDE 0.9% INJ 100 ML IV SCH ×3 (00:15→15:25)
[2016-12-15] MEDS: AMPICILLIN/SULBAC 3 GM/NS 100 ML IV SCH ×8 (04:50→22:10)
[2016-12-15] MEDS: ACETAMINOPHEN/HYDROcodone 325 MG/5 MG TAB PO PRN ×4 (06:30→22:17)
[2016-12-15] MEDS: VENLAFAXINE HCL XR 75 MG CAP PO SCH (08:39)
[2016-12-15] MEDS: LISINOPRIL 10 MG TAB PO SCH (08:39)
[2016-12-15] MEDS: DOCUSATE SODIUM 50 MG/SENNA 8.6 MG TAB PO SCH ×2 (08:39→22:10)
[2016-12-15] MEDS: CALCIUM CARBONATE 1.25 GM (CA 500 MG) TAB PO SCH ×2 (08:39→22:10)
[2016-12-15] MEDS: cloNIDine HCL 0.1 MG TAB PO SCH ×2 (08:39→22:10)
[2016-12-15] MEDS: FOLIC ACID 1 MG TAB PO SCH (08:39)
[2016-12-15] MEDS: MULTIVITAMINS/MINERALS THERAPEUTIC TAB PO SCH (08:39)
[2016-12-15] MEDS: THIAMINE HCL 100 MG TAB PO SCH (08:39)
[2016-12-15] MEDS: NICOTINE 21 MG/24 HR PATCH T-DERMAL SCH (08:40)
[2016-12-15] MEDS: REMOVE OLD PATCH T-DERMAL SCH (08:40)
[2016-12-15] MEDS: ARIPiprazole 30 MG TAB PO SCH (08:40)
[2016-12-15] MEDS: SODIUM CHLORIDE 0.9% FLUSH 10 ML FLUSH IV FLUSH SCH ×2 (08:40→22:11)
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
[2016-12-15 20:51] LABS: BICARBONATE 26.1 MEQ/L (21.0-32.0); POTASSIUM 4.5 MEQ/L (3.5-5.1)
[2016-12-15 21:24] LABS: HEMATOCRIT 36.7 % (35.0-46.0); MEAN CELL VOLUME 107.9 FL (80.0-100.0); MEAN CORPUSCULAR HEMOGLOBIN 36.3 PG (27.0-34.0); MEAN CORPUSCULAR HGB CONC 33.7 % (32.0-36.0); PLATELET COUNT 53 TH/MM3 (150-450); RED CELL DISTRIBUTION WIDTH 15.7 % (11.6-17.2); WHITE BLOOD COUNT 4.1 TH/MM3 (4.0-11.0)
[2016-12-15 21:25] LABS: REVIEW FLAG FINAL
[2016-12-15] MEDS: MIRTAZAPINE ODT 30 MG TAB PO SCH (22:09)
[2016-12-15] MEDS: traZODone HCL 50 MG TAB PO SCH (22:09)
[2016-12-16] MEDS: CLINDAMYCIN INJ 900 MG in SODIUM CHLORIDE 0.9% INJ 100 ML IV SCH ×2 (01:17→08:25)
[2016-12-16] MEDS: ACETAMINOPHEN/HYDROcodone 325 MG/5 MG TAB PO PRN ×5 (01:52→23:01)
[2016-12-16 04:00] VITALS: BP 135/62; PULSE 80; RESP 18; TEMP 98.1; O2SAT 93
[2016-12-16] MEDS: SODIUM CHLORIDE 0.9% FLUSH 10 ML FLUSH IV FLUSH PRN (04:36)
[2016-12-16] MEDS: AMPICILLIN/SULBAC 3 GM/NS 100 ML IV SCH ×8 (04:36→22:59)
[2016-12-16] MEDS: hydrOXYzine PAMOATE 25 MG CAP PO PRN (04:41)
[2016-12-16] MEDS: DOCUSATE SODIUM 50 MG/SENNA 8.6 MG TAB PO SCH ×2 (08:25→22:59)
[2016-12-16] MEDS: THIAMINE HCL 100 MG TAB PO SCH (08:25)
[2016-12-16] MEDS: CALCIUM CARBONATE 1.25 GM (CA 500 MG) TAB PO SCH ×2 (08:25→23:00)
[2016-12-16] MEDS: ARIPiprazole 30 MG TAB PO SCH (08:25)
[2016-12-16 08:26] LABS: AUTOMATED NEUTROPHIL # 1.1 TH/MM3 (1.8-7.7); BASOPHIL % 0.3 % (0.0-2.0); EOSINOPHIL # 0.3 TH/MM3 (0-0.4); EOSINOPHIL % 6.8 % (0.0-4.0); HEMATOCRIT 34.4 % (35.0-46.0); LYMPH % 54.4 % (9.0-44.0); LYMPHOCYTE # 2.1 TH/MM3 (1.0-4.8); MEAN CELL VOLUME 108.5 FL (80.0-100.0); MEAN CORPUSCULAR HEMOGLOBIN 35.8 PG (27.0-34.0); MONO % 11.1 % (0.0-8.0); NEUT % 27.4 % (16.0-70.0); PLATELET COUNT 55 TH/MM3 (150-450); RED BLOOD COUNT 3.17 MIL/MM3 (4.00-5.30); RED CELL DISTRIBUTION WIDTH 15.4 % (11.6-17.2)
[2016-12-16] MEDS: MULTIVITAMINS/MINERALS THERAPEUTIC TAB PO SCH (08:26)
[2016-12-16] MEDS: LISINOPRIL 10 MG TAB PO SCH (08:26)
[2016-12-16] MEDS: VENLAFAXINE HCL XR 75 MG CAP PO SCH (08:26)
[2016-12-16] MEDS: cloNIDine HCL 0.1 MG TAB PO SCH ×2 (08:26→23:00)
[2016-12-16] MEDS: FOLIC ACID 1 MG TAB PO SCH (08:26)
[2016-12-16] MEDS: SODIUM CHLORIDE 0.9% FLUSH 10 ML FLUSH IV FLUSH SCH ×2 (08:26→23:01)
[2016-12-16] MEDS: NICOTINE 21 MG/24 HR PATCH T-DERMAL SCH (08:26)
[2016-12-16 08:28] VITALS: BP 121/64; PULSE 75; RESP 18; TEMP 97.9; O2SAT 97
[2016-12-16 08:35] LABS: HEMO FLAGS AUTO DIFF
[2016-12-16 08:49] LABS: BICARBONATE 28.2 MEQ/L (21.0-32.0); POTASSIUM 3.6 MEQ/L (3.5-5.1)
[2016-12-16] MEDS ORDERED: Vancomycin Consult Pharmacy 1 EA OTHER SCH (09:30)
[2016-12-16] MEDS ORDERED: VANCOMYCIN INJ 1,000 MG in SODIUM CHLOR 0.9% 250 ML INJ 250 ML IV ONE (09:30)
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
[2016-12-16 10:01] LABS: PLATELET ESTIMATE SMEAR LOW (NORMAL); PLATELET MORPHOLOGY NORMAL (NORMAL); SCAN/DIFF AUTO DIFF CONFIRMED
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
[2016-12-16] MEDS: VANCOMYCIN INJ 1,500 MG in SODIUM CHLORID 0.9% 500 ML INJ 500 ML IV SCH ×2 (11:44→23:02)
[2016-12-16 12:00] VITALS: BP 139/77; PULSE 74; RESP 18; TEMP 97.8; O2SAT 97
[2016-12-16 12:04] VITALS: PULSE 78
--- NOTE | 2016-12-16 16:16 | HHI.PR ---
Subjective Remarks no new complaints Objective Vital Signs Date Time Temp Pulse Resp B/P Pulse Ox O2 Delivery O2 Flow Rate FiO2 12/16/16 12:04 78 12/16/16 12:00 97.8 74 18 139/77 97 12/16/16 08:28 97.9 75 18 121/64 97 12/16/16 04:00 98.1 80 18 135/62 93 12/15/16 20:00 98.3 80 18 159/68 95 12/15/16 16:54 98.4 73 18 146/66 94 I/O 12/15/16 12/15/16 12/15/16 12/16/16 12/16/16 12/16/16 06:59 14:59 22:59 06:59 14:59 22:59 Intake Total 1500 ml 556 ml 920 ml 240 ml 700 ml Balance 1500 ml 556 ml 920 ml 240 ml 700 ml Intake Oral 1500 ml 36 ml 720 ml 240 ml IV Total 520 ml 200 ml 700 ml # Voids 4 1 6 6 1 # Bowel Movements 0 1 Result Diagram: 12/16/16 0802 12/16/16 0802 Objective Remarks examination of the left upper extremity reveals slightly iproved edema, but barely erythema starting to decrease wounds are clean NO evidence of compartment syndrome or any abscesses able to move all fingers and thumb all surfaces soft no subcutaneous emphysema/crepitance AA x O x 3 sitting in bed, pleasant, with left arm elevated in room as well Assessment and Plan Problem List: (1) Cellulitis of arm, left Status: Acute Plan: continue left arm elevation continue IV abx I've ordered venous duplex to r/o clot of left UE because the swelling seems a bit more than i would expect from cellulitis alone Vinayak Lua III, MD Dec 16, 2016 16:15
[2016-12-16 16:32] VITALS: BP 172/80; PULSE 76; RESP 18; TEMP 98.2; O2SAT 97
[2016-12-16 20:00] VITALS: BP 137/70; PULSE 76; RESP 18; TEMP 97.8; O2SAT 93
--- NOTE | 2016-12-16 20:27 | RADRPT ---
EXAM DATE/TIME: 12/16/2016 18:57 [facility] COMPARISON: No previous studies available for comparison. INDICATIONS : Left arm swelling. MEDICAL HISTORY : Renal failure, acute. Osteoarthritis. Hypertension. Bipolar. Liver pain with alcohol cessation. Synco pe. COPD. Anxiety. Depression. SURGICAL HISTORY : ENCOUNTER: Initial ACUITY: 4 - 6 days PAIN SCORE: 10/10 LOCATION: Left arm. FINDINGS: There is spontaneous flow documented in the brachial, basilic, cephalic, axillary, and subclavian vei ns. The vessels are compressible and augmentation response is documented. No filling defects are se en. The flow is phasic with respiration. Direction of flow in the jugular vein is caudal. CONCLUSION: No DVT left arm. Abiodun Abernathy MD on December 16, 2016 at 20:25 Board Certified Radiologist. This report was verified electronically.
[2016-12-16] MEDS: REMOVE OLD PATCH T-DERMAL SCH (21:00)
[2016-12-16] MEDS: MIRTAZAPINE ODT 30 MG TAB PO SCH (22:59)
[2016-12-16] MEDS: traZODone HCL 50 MG TAB PO SCH (23:00)
[2016-12-17] VITALS: BP 147/84; PULSE 83; RESP 20; TEMP 98.1; O2SAT 92
[2016-12-17] MEDS: MAGNESIUM HYDROXIDE SUSP 30 ML CUP PO PRN (00:22)
[2016-12-17] MEDS: ACETAMINOPHEN/HYDROcodone 325 MG/5 MG TAB PO PRN ×4 (03:13→20:57)
[2016-12-17] MEDS: SODIUM CHLORIDE 0.9% FLUSH 10 ML FLUSH IV FLUSH PRN (03:14)
[2016-12-17] MEDS: AMPICILLIN/SULBAC 3 GM/NS 100 ML IV SCH ×8 (03:14→20:56)
[2016-12-17 08:00] VITALS: BP 158/84; PULSE 81; RESP 19; TEMP 97.9; O2SAT 93
[2016-12-17 08:43] LABS: AUTOMATED NEUTROPHIL # 1.4 TH/MM3 (1.8-7.7); BASOPHIL % 0.7 % (0.0-2.0); EOSINOPHIL # 0.3 TH/MM3 (0-0.4); EOSINOPHIL % 6.5 % (0.0-4.0); HEMATOCRIT 29.9 % (35.0-46.0); LYMPHOCYTE # 2.2 TH/MM3 (1.0-4.8); MEAN CELL VOLUME 105.6 FL (80.0-100.0); MEAN CORPUSCULAR HEMOGLOBIN 36.3 PG (27.0-34.0); MEAN CORPUSCULAR HGB CONC 34.4 % (32.0-36.0); MONO % 9.8 % (0.0-8.0); PLATELET COUNT 64 TH/MM3 (150-450); RED BLOOD COUNT 2.83 MIL/MM3 (4.00-5.30); RED CELL DISTRIBUTION WIDTH 15.6 % (11.6-17.2); WHITE BLOOD COUNT 4.3 TH/MM3 (4.0-11.0)
[2016-12-17] MEDS: SODIUM CHLORIDE 0.9% FLUSH 10 ML FLUSH IV FLUSH SCH ×2 (09:00→20:57)
[2016-12-17 09:13] LABS: HEMO FLAGS AUTO DIFF
[2016-12-17 09:22] LABS: BICARBONATE 32.4 MEQ/L (21.0-32.0); POTASSIUM 3.6 MEQ/L (3.5-5.1)
[2016-12-17] MEDS: VENLAFAXINE HCL XR 75 MG CAP PO SCH (09:29)
[2016-12-17] MEDS: THIAMINE HCL 100 MG TAB PO SCH (09:29)
[2016-12-17] MEDS: CALCIUM CARBONATE 1.25 GM (CA 500 MG) TAB PO SCH ×2 (09:29→20:56)
[2016-12-17] MEDS: ARIPiprazole 30 MG TAB PO SCH (09:30)
[2016-12-17] MEDS: cloNIDine HCL 0.1 MG TAB PO SCH ×2 (09:30→20:57)
[2016-12-17] MEDS: LISINOPRIL 10 MG TAB PO SCH (09:30)
[2016-12-17] MEDS: DOCUSATE SODIUM 50 MG/SENNA 8.6 MG TAB PO SCH ×2 (09:31→20:56)
[2016-12-17] MEDS: NICOTINE 21 MG/24 HR PATCH T-DERMAL SCH (09:31)
[2016-12-17 09:55] LABS: PLATELET ESTIMATE SMEAR LOW (NORMAL); PLATELET MORPHOLOGY NORMAL (NORMAL); SCAN/DIFF AUTO DIFF CONFIRMED
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
[2016-12-17 12:00] VITALS: BP 160/93; PULSE 75; RESP 19; TEMP 97.7; O2SAT 95
[2016-12-17] MEDS: VANCOMYCIN INJ 1,500 MG in SODIUM CHLORID 0.9% 500 ML INJ 500 ML IV SCH (12:01)
--- NOTE | 2016-12-17 12:50 | HHI.PR ---
Subjective Remarks no new complaints Objective Vital Signs Date Time Temp Pulse Resp B/P Pulse Ox O2 Delivery O2 Flow Rate FiO2 12/17/16 08:00 97.9 81 19 158/84 93 12/17/16 00:00 98.1 83 20 147/84 92 12/16/16 20:00 97.8 76 18 137/70 93 12/16/16 16:32 98.2 76 18 172/80 97 I/O 12/16/16 12/16/16 12/16/16 12/17/16 12/17/16 12/17/16 07:00 15:00 23:00 07:00 15:00 23:00 Intake Total 240 ml 1180 ml Output Total 1800 ml Balance 240 ml 1180 ml -1800 ml Intake Oral 240 ml 480 ml IV Total 700 ml Output Urine Total 1800 ml # Voids 6 3 Result Diagram: 12/17/16 0800 12/17/16 0800 Objective Remarks examination of the left upper extremity reveals significant improvement in edema erythema starting to decrease, scalded skin is stable wounds are clean NO evidence of compartment syndrome or any abscesses able to move all fingers and thumb all surfaces soft no subcutaneous emphysema/crepitance AA x O x 3 sitting in bed, pleasant, with left arm elevated in room as well Assessment and Plan Problem List: (1) Cellulitis of arm, left Status: Acute Plan: continue left arm elevation continue IV abx venous duplex negative for clot silvadine to left forearm wound; hold for fever Vinayak Lua III, MD Dec 17, 2016 12:50
--- NOTE | 2016-12-17 13:26 | HHI.PR ---
Subjective Remarks Follow up sepsis/Left forearm cellulitis 12/17/16-patient seen and examined; afebrile; complains of left arm pain Objective Vitals Vital Signs Date Time Temp Pulse Resp B/P Pulse Ox O2 Delivery O2 Flow Rate FiO2 12/17/16 12:00 97.7 75 19 160/93 95 12/17/16 08:00 97.9 81 19 158/84 93 12/17/16 00:00 98.1 83 20 147/84 92 12/16/16 20:00 97.8 76 18 137/70 93 12/16/16 16:32 98.2 76 18 172/80 97 I/O 12/16/16 12/16/16 12/16/16 12/17/16 12/17/16 12/17/16 06:59 14:59 22:59 06:59 14:59 22:59 Intake Total 240 ml 1180 ml Output Total 1800 ml Balance 240 ml 1180 ml -1800 ml Intake Oral 240 ml 480 ml IV Total 700 ml Output Urine Total 1800 ml # Voids 6 3 Result Diagram: 12/17/16 0800 12/17/16 0800 Imaging Last Impressions Upper Extremity Ultrasound 12/16/16 0000 Signed Impressions: Service Date/Time: Friday, December 16, 2016 18:57 - CONCLUSION: No DVT left arm. Abiodun Abernathy MD Chest X-Ray 12/11/16 1549 Signed Impressions: Service Date/Time: Sunday, December 11, 2016 16:28 - CONCLUSION: Normal examination. Josue Carter MD Radius/Ulna X-Ray 12/11/16 0000 Signed Impressions: Service Date/Time: Sunday, December 11, 2016 14:42 - CONCLUSION: Soft tissue swelling without fracture. Abiodun Abernathy MD Objective Remarks GENERAL: NAD SKIN: Warm and dry. HEAD: Normocephalic. EYES: No scleral icterus. No injection or drainage. NECK: Supple, trachea midline. No JVD or lymphadenopathy. CARDIOVASCULAR: Regular rate and rhythm without murmurs, gallops, or rubs. RESPIRATORY: Breath sounds equal bilaterally. No accessory muscle use. GASTROINTESTINAL: Abdomen soft, non-tender, nondistended. MUSCULOSKELETAL: No cyanosis, or edema. left arm attached to a pool BACK: Nontender without obvious deformity. No CVA tenderness. A/P Problem List: (1) Cellulitis of arm, left ICD Code: L03.114 Status: Acute (2) Sepsis ICD Code: A41.9 Status: Acute Assessment and Plan 56 yrs old female with; Sepsis patient presented w tachycardia and fever. now Resolved. Cellulitis of left forearm --Wound cultures grew group a beta strep and MRSA Currently on Unasyn and Vancomycin per ID. Hand surgery consulted, no surgical intervention at this time. Patient to keep UE elevated at all times. Alcoholism - on CIWA protocol. - on multivitamin, folic acid, thiamine. - No signs of alcohol withdrawal. Hypokalemia/hypocalcemia -Replenish as needed. calcium carbonate scheduled. Hypertension -On clonidine and lisinopril -Continue to monitor closely. Thrombocytopenia -Due to alcoholism. Patient doesn't have any bleeding at the moment. -This seems to be patient's baseline. Tobacco dependence -Smoking cessation. -Nicotine patch. DVT prophylaxis -SCDs/TEDs Problem Qualifiers (1) Sepsis: Qualified Code: A41.9 - Sepsis, due to unspecified organism Abiodun Major MD Dec 17, 2016 13:26
[2016-12-17] MEDS: SILVER SULFADIAZINE 1% CR 50 GM JAR TOPICAL SCH ×2 (14:00→20:57)
[2016-12-17 16:00] VITALS: BP 146/78; PULSE 77; RESP 19; TEMP 97.8; O2SAT 93
[2016-12-17 20:00] VITALS: BP 142/85; PULSE 77; RESP 20; TEMP 98.4; O2SAT 94
[2016-12-17] MEDS: MIRTAZAPINE ODT 30 MG TAB PO SCH (20:56)
[2016-12-17] MEDS: traZODone HCL 50 MG TAB PO SCH (20:57)
[2016-12-17] MEDS: REMOVE OLD PATCH T-DERMAL SCH (20:57)
[2016-12-18] VITALS: BP 173/80; PULSE 84; RESP 18; TEMP 97; O2SAT 97
[2016-12-18] MEDS: ACETAMINOPHEN/HYDROcodone 325 MG/5 MG TAB PO PRN ×5 (01:03→22:26)
[2016-12-18] MEDS: VANCOMYCIN INJ 1,500 MG in SODIUM CHLORID 0.9% 500 ML INJ 500 ML IV SCH ×3 (01:03→23:19)
[2016-12-18 04:00] VITALS: BP 132/81; PULSE 75; RESP 18; TEMP 98.3; O2SAT 93
[2016-12-18] MEDS: AMPICILLIN/SULBAC 3 GM/NS 100 ML IV SCH ×8 (04:11→22:09)
[2016-12-18] MEDS: hydrOXYzine PAMOATE 25 MG CAP PO PRN (04:17)
[2016-12-18 08:00] VITALS: BP 180/92; PULSE 76; RESP 16; TEMP 97.5; O2SAT 95
[2016-12-18] MEDS: SILVER SULFADIAZINE 1% CR 50 GM JAR TOPICAL SCH ×2 (09:00→22:10)
[2016-12-18] MEDS: NICOTINE 21 MG/24 HR PATCH T-DERMAL SCH (10:28)
[2016-12-18] MEDS: DOCUSATE SODIUM 50 MG/SENNA 8.6 MG TAB PO SCH ×2 (10:29→22:17)
[2016-12-18] MEDS: cloNIDine HCL 0.1 MG TAB PO SCH ×2 (10:29→22:07)
[2016-12-18] MEDS: LISINOPRIL 10 MG TAB PO SCH (10:29)
[2016-12-18] MEDS: THIAMINE HCL 100 MG TAB PO SCH (10:29)
[2016-12-18] MEDS: ARIPiprazole 30 MG TAB PO SCH (10:30)
[2016-12-18] MEDS: CALCIUM CARBONATE 1.25 GM (CA 500 MG) TAB PO SCH ×2 (10:30→22:07)
[2016-12-18] MEDS: VENLAFAXINE HCL XR 75 MG CAP PO SCH (10:33)
[2016-12-18] MEDS ORDERED: PHARMACY ORDERED LAB ONE (10:45)
[2016-12-18 12:00] VITALS: BP 175/84; PULSE 81; RESP 16; TEMP 97.5; O2SAT 93
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
--- NOTE | 2016-12-18 12:13 | HHI.PR ---
Subjective Remarks no new complaints thinks left arm is feeling better Objective Vital Signs Date Time Temp Pulse Resp B/P Pulse Ox O2 Delivery O2 Flow Rate FiO2 12/18/16 08:00 97.5 76 16 180/92 95 12/18/16 04:00 98.3 75 18 132/81 93 12/18/16 00:00 97.0 84 18 173/80 97 12/17/16 20:00 98.4 77 20 142/85 94 12/17/16 16:00 97.8 77 19 146/78 93 I/O 12/17/16 12/17/16 12/17/16 12/18/16 12/18/16 12/18/16 06:59 14:59 22:59 06:59 14:59 22:59 Intake Total 960 ml Output Total 1800 ml Balance -1800 ml 960 ml Intake Oral 960 ml Output Urine Total 1800 ml # Voids 4 5 # Bowel Movements 2 Result Diagram: 12/17/16 0800 12/18/16 1038 Objective Remarks examination of the left upper extremity reveals significant improvement in edema moreso than yesterday no acute erythema scalded skin is stable wounds are clean NO evidence of compartment syndrome or any abscesses able to move all fingers and thumb all surfaces soft no subcutaneous emphysema/crepitance AA x O x 3 sitting in bed, pleasant, with left arm elevated Assessment and Plan Problem List: (1) Cellulitis of arm, left Status: Acute Plan: continue left arm elevation continue IV abx i re-did her dressing today silvadine to left forearm wound; hold for fever Vinayak Lua III, MD Dec 18, 2016 12:13
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
[2016-12-18 16:00] VITALS: BP 199/95; PULSE 83; RESP 16; TEMP 97.3; O2SAT 95
[2016-12-18 20:00] VITALS: BP 181/105; PULSE 83; RESP 20; TEMP 98; O2SAT 94
[2016-12-18] MEDS: MIRTAZAPINE ODT 30 MG TAB PO SCH (22:05)
[2016-12-18] MEDS: traZODone HCL 50 MG TAB PO SCH (22:07)
[2016-12-18] MEDS: SODIUM CHLORIDE 0.9% FLUSH 10 ML FLUSH IV FLUSH SCH ×2 (22:08→22:17)
[2016-12-18] MEDS: REMOVE OLD PATCH T-DERMAL SCH (23:25)
[2016-12-19] VITALS: BP 159/71; PULSE 88; RESP 20; TEMP 97.9; O2SAT 90
[2016-12-19 04:00] VITALS: BP 150/87; PULSE 79; RESP 18; TEMP 97.6; O2SAT 96
[2016-12-19] MEDS: AMPICILLIN/SULBAC 3 GM/NS 100 ML IV SCH ×8 (04:45→21:31)
[2016-12-19] MEDS: ACETAMINOPHEN/HYDROcodone 325 MG/5 MG TAB PO PRN ×3 (04:53→18:21)
[2016-12-19 08:19] VITALS: BP 150/92; PULSE 81; RESP 16; TEMP 97.5; O2SAT 94
[2016-12-19] MEDS: SILVER SULFADIAZINE 1% CR 50 GM JAR TOPICAL SCH ×2 (09:00→21:00)
[2016-12-19] MEDS: LISINOPRIL 10 MG TAB PO SCH (09:55)
[2016-12-19] MEDS: DOCUSATE SODIUM 50 MG/SENNA 8.6 MG TAB PO SCH (09:55)
[2016-12-19] MEDS: CALCIUM CARBONATE 1.25 GM (CA 500 MG) TAB PO SCH ×2 (09:55→20:06)
[2016-12-19] MEDS: VENLAFAXINE HCL XR 75 MG CAP PO SCH (09:55)
[2016-12-19] MEDS: cloNIDine HCL 0.1 MG TAB PO SCH ×2 (09:56→20:06)
[2016-12-19] MEDS: ARIPiprazole 30 MG TAB PO SCH (09:56)
[2016-12-19] MEDS: NICOTINE 21 MG/24 HR PATCH T-DERMAL SCH (09:56)
[2016-12-19] MEDS: THIAMINE HCL 100 MG TAB PO SCH (09:56)
[2016-12-19] MEDS: SODIUM CHLORIDE 0.9% FLUSH 10 ML FLUSH IV FLUSH SCH ×2 (10:21→20:07)
[2016-12-19] MEDS ORDERED: PHARMACY ORDERED LAB ONE (10:45)
[2016-12-19] MEDS: VANCOMYCIN INJ 1,500 MG in SODIUM CHLORID 0.9% 500 ML INJ 500 ML IV SCH ×3 (11:00→23:38)
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
[2016-12-19 12:30] VITALS: BP 187/83; PULSE 76; RESP 16; TEMP 97.5; O2SAT 95
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
[2016-12-19] MEDS ORDERED: CLON.1 PO (14:49)
[2016-12-19] MEDS ORDERED: MIRT1TAB44 PO (14:49)
[2016-12-19] MEDS ORDERED: GNP100TA3 PO (14:49)
[2016-12-19] MEDS ORDERED: SSD1CRE TOPICAL (14:49)
[2016-12-19] MEDS ORDERED: LISI-515 PO (14:49)
[2016-12-19] MEDS ORDERED: HYDR-3516 PO (14:49)
[2016-12-19] MEDS ORDERED: LACTCHW3 CHEW (14:49)
[2016-12-19] MEDS ORDERED: CLIN1CAP6 PO (14:49)
[2016-12-19] MEDS ORDERED: VENL75XR PO (14:49)
[2016-12-19 16:00] VITALS: BP 177/97; PULSE 76; RESP 16; TEMP 97.5; O2SAT 94
[2016-12-19] MEDS: MIRTAZAPINE ODT 30 MG TAB PO SCH (20:06)
[2016-12-19] MEDS: traZODone HCL 50 MG TAB PO SCH (20:06)
[2016-12-19] MEDS: hydrOXYzine PAMOATE 25 MG CAP PO PRN (20:13)
[2016-12-19] MEDS: REMOVE OLD PATCH T-DERMAL SCH (20:15)
[2016-12-19 21:14] VITALS: BP 188/88; PULSE 71; RESP 18; TEMP 97.9; O2SAT 94
[2016-12-20] MEDS: ACETAMINOPHEN/HYDROcodone 325 MG/5 MG TAB PO PRN ×3 (00:50→08:44)
[2016-12-20 00:59] VITALS: BP 159/72; PULSE 67; RESP 18; TEMP 98; O2SAT 94
[2016-12-20] MEDS: AMPICILLIN/SULBAC 3 GM/NS 100 ML IV SCH ×4 (04:02→08:41)
[2016-12-20 05:00] VITALS: BP 143/67; PULSE 74; RESP 18; TEMP 97.6; O2SAT 91
[2016-12-20] MEDS ORDERED: CLINDAMYCIN 150 MG CAP PO SCH (06:00)
[2016-12-20 07:23] LABS: BICARBONATE 30.1 MEQ/L (21.0-32.0); POTASSIUM 4.9 MEQ/L (3.5-5.1)
[2016-12-20 07:32] LABS: AUTOMATED NEUTROPHIL # 2.8 TH/MM3 (1.8-7.7); BASOPHIL # 0.1 TH/MM3 (0-0.2); EOSINOPHIL # 0.2 TH/MM3 (0-0.4); EOSINOPHIL % 2.8 % (0.0-4.0); HEMATOCRIT 31.7 % (35.0-46.0); LYMPH % 43.8 % (9.0-44.0); LYMPHOCYTE # 2.6 TH/MM3 (1.0-4.8); MEAN CORPUSCULAR HEMOGLOBIN 36.3 PG (27.0-34.0); MEAN CORPUSCULAR HGB CONC 34.6 % (32.0-36.0); MONO % 5.1 % (0.0-8.0); NEUT % 47.3 % (16.0-70.0); PLATELET COUNT 87 TH/MM3 (150-450); RED BLOOD COUNT 3.02 MIL/MM3 (4.00-5.30); RED CELL DISTRIBUTION WIDTH 16.2 % (11.6-17.2); WHITE BLOOD COUNT 5.9 TH/MM3 (4.0-11.0)
[2016-12-20 08:00] VITALS: BP 181/76; PULSE 70; RESP 16; TEMP 97.5; O2SAT 93
[2016-12-20 08:01] LABS: HEMO FLAGS AUTO DIFF
[2016-12-20] MEDS: ARIPiprazole 30 MG TAB PO SCH (08:30)
[2016-12-20] MEDS: THIAMINE HCL 100 MG TAB PO SCH (08:30)
[2016-12-20] MEDS: CALCIUM CARBONATE 1.25 GM (CA 500 MG) TAB PO SCH (08:30)
[2016-12-20] MEDS: VENLAFAXINE HCL XR 75 MG CAP PO SCH (08:30)
[2016-12-20] MEDS: cloNIDine HCL 0.1 MG TAB PO SCH (08:31)
[2016-12-20] MEDS: NICOTINE 21 MG/24 HR PATCH T-DERMAL SCH (08:40)
[2016-12-20] MEDS: SODIUM CHLORIDE 0.9% FLUSH 10 ML FLUSH IV FLUSH SCH (08:44)
[2016-12-20] MEDS: SILVER SULFADIAZINE 1% CR 50 GM JAR TOPICAL SCH (08:45)
[2016-12-20] MEDS ORDERED: LISINOPRIL 20 MG TAB PO SCH (09:00)
[2016-12-20 09:19] LABS: PLATELET ESTIMATE SMEAR LOW (NORMAL); PLATELET MORPHOLOGY NORMAL (NORMAL); SCAN/DIFF AUTO DIFF CONFIRMED
[2016-12-20 12:00] VITALS: BP 180/83; PULSE 67; RESP 16; TEMP 97.4; O2SAT 95
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
[2016-12-21] MEDS ORDERED: PHARMACY ORDERED LAB ONE (10:45)
== END 2016-12-20 15:04 | disposition home or self-care (01) | DRG 872 ==
LOC: NEPE 11:59 → NEDA 15:16 → N05A 18:25
PROVIDERS: ADMIT Hospitalist; ATTEND Hospitalist
DX: A41.02 Sepsis due to Methicillin resistant Staphylococcus aureus (principal); F10.231 Alcohol dependence with withdrawal delirium; D69.59 Other secondary thrombocytopenia; E83.51 Hypocalcemia; L03.114 Cellulitis of left upper limb; A40.0 Sepsis due to streptococcus, group A; S51.812A Laceration without foreign body of left forearm, initial encounter; E87.6 Hypokalemia; I10 Essential (primary) hypertension; J44.9 Chronic obstructive pulmonary disease, unspecified; F17.200 Nicotine dependence, unspecified, uncomplicated; F32.9 Major depressive disorder, single episode, unspecified; F41.9 Anxiety disorder, unspecified; Y04.1XXA Assault by human bite, initial encounter; Y90.0 Blood alcohol level of less than 20 mg/100 ml; Z59.0 Homelessness; Z71.6 Tobacco abuse counseling; Z86.19 Personal history of other infectious and parasitic diseases
CPT/HCPCS: 71020; 73090; 76937; 80048; 80053; 80202; 80307; 81001; 82550; 82565; 83605; 84155; 85025; 85027; 86403; 87040; 87070; 87147; 87186; 87205; 93971; 96365; J0295; J0610; J2405; J2543; J3370; J7030; J7040; J7050; Q0177

== ENCOUNTER 2017-01-16 11:22 | Emergency (ER) | payer OTHER ==
[~2017-01-16] VITALS: Ht 157.5 cm; Wt 82.0 kg
[~2017-01-16 11:22] MED LIST changes: +CLIN1CAP6 PO; +CLON.1 PO; -CLON0.1T PO; +GNP100TA3 PO; +HYDR-3516 PO; +LACTCHW3 CHEW; +LISI-515 PO; -LISI10TA3 PO; +MIRT1TAB44 PO; +SSD1CRE TOPICAL; -VENL75TA PO; +VENL75XR PO
[2017-01-16 11:24] VITALS: BP 147/94; PULSE 100; RESP 20; TEMP 99.8; O2SAT 96
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
[2017-01-16] MEDS ORDERED: SODIUM CHLOR 0.9% 1000 ML INJ 1,000 ML IV ONE (12:45)
[2017-01-16] MEDS ORDERED: ACETAMINOPHEN/HYDROcodone 325 MG/5 MG TAB PO ONE ×2 (12:45→14:45)
[2017-01-16] MEDS ORDERED: LORazepam 1 MG TAB PO PRN (13:00)
[2017-01-16] MEDS ORDERED: LORazepam 2 MG/ML VIAL IV PUSH PRN ×4 (13:00)
[2017-01-16] MEDS ORDERED: LORazepam 2 MG TAB PO PRN (13:00)
[2017-01-16 13:42] LABS: AUTOMATED NEUTROPHIL # 5.9 TH/MM3 (1.8-7.7); BASOPHIL % 0.5 % (0.0-2.0); EOSINOPHIL # 0.2 TH/MM3 (0-0.4); EOSINOPHIL % 1.6 % (0.0-4.0); HEMATOCRIT 35.8 % (35.0-46.0); LYMPH % 31.4 % (9.0-44.0); MEAN CELL VOLUME 106.5 FL (80.0-100.0); MEAN CORPUSCULAR HEMOGLOBIN 36.2 PG (27.0-34.0); MONO % 5.5 % (0.0-8.0); RED BLOOD COUNT 3.36 MIL/MM3 (4.00-5.30); RED CELL DISTRIBUTION WIDTH 15.4 % (11.6-17.2); WHITE BLOOD COUNT 9.6 TH/MM3 (4.0-11.0)
[2017-01-16 13:45] LABS: HEMO FLAGS AUTO DIFF
[2017-01-16 14:00] LABS: BICARBONATE 22.7 MEQ/L (21.0-32.0); POTASSIUM 3.8 MEQ/L (3.5-5.1)
[2017-01-16 14:13] LABS: PLATELET COUNT 36 TH/MM3 (150-450)
[2017-01-16 14:14] LABS: SCAN/DIFF AUTO DIFF CONFIRMED
[2017-01-16] MEDS ORDERED: ASP: Location of Dalbavancin administration OTHER ONE (14:30)
[2017-01-16] MEDS ORDERED: ASP: No known hypersensitivity to Vanco, Telavancin, Dalbavancin OTHER ONE (14:30)
[2017-01-16] MEDS ORDERED: ASP: Only reason for admit - IV antibiotics OTHER ONE (14:30)
[2017-01-16] MEDS ORDERED: MISCELLANEOUS PHARMACY INFORMATION XX ONE (14:30)
[2017-01-16] MEDS ORDERED: ASP: Does not meet inpatient admission criteria OTHER ONE (14:30)
[2017-01-16] MEDS ORDERED: LIDOCAINE HCL 1% 30 ML VIAL INFIL ONE (14:45)
[2017-01-16] MEDS ORDERED: LIDOCAINE HCL 1% 50 ML VIAL ONE (14:55)
[2017-01-16] MEDS ORDERED: DALBAVANCIN 1,500 MG/D5W 500 ML IV ONE ×2 (15:00)
--- NOTE | 2017-01-16 15:03 | PD ---
Data Data Last Documented VS Vital Signs Date Time Temp Pulse Resp B/P (MAP) Pulse Ox O2 Delivery O2 Flow Rate FiO2 01/16/17 11:24 99.8 100 20 147/94 (111) 96 Room Air Orders Orders Complete Blood Count With Diff (01/16/17 12:37) Basic Metabolic Panel (Bmp) (01/16/17 12:37) Iv Access Insert/Monitor (01/16/17 12:37) Sodium Chlor 0.9% 1000 Ml Inj (Ns 1000 M (01/16/17 12:45) Acetamin-Hydrocod 325-5 Mg ([place] 5-325 (01/16/17 12:45) Alcohol Withdrawal Asmt-Ciwa ONCE (01/16/17 12:49) Lorazepam (Ativan) (01/16/17 13:00) Lorazepam Inj (Ativan Inj) (01/16/17 13:00) Lorazepam (Ativan) (01/16/17 13:00) Lorazepam Inj (Ativan Inj) (01/16/17 13:00) Lorazepam Inj (Ativan Inj) (01/16/17 13:00) Lorazepam Inj (Ativan Inj) (01/16/17 13:00) Ed Poc Ultrasound (01/16/17 ) Blood Culture (01/16/17 14:24) Asp:No Reaction To Dalbav/Vanc (Asp Crit (01/16/17 14:30) Asp: Does Not Meet Inpt Admit (Asp Crit: (01/16/17 14:30) Asp: Iv Antibiotics Admit Only (Asp Crit (01/16/17 14:30) Asp: Location Of Dalbav Admin (Asp Crit: (01/16/17 14:30) [facility] ([facility] (01/16/17 14:30) Armando Bandage (01/16/17 14:24) Elevate (01/16/17 14:24) Document (01/16/17 14:24) Measurements (01/16/17 14:24) Acetamin-Hydrocod 325-5 Mg ([place] 5-325 (01/16/17 14:45) Lidocaine 1% Inj (Xylocaine 1% Inj) (01/16/17 14:45) Wound Culture And Gram Stain (01/16/17 14:45) Lidocaine 1% Inj (50 Ml) (Xylocaine 1% I (01/16/17 14:55) Dalbavancin Inj (Dalvance Inj) (01/16/17 15:00) Labs Laboratory Tests Test 01/16/17 13:20 01/16/17 13:25 White Blood Count 9.6 TH/MM3 Red Blood Count 3.36 MIL/MM3 Hemoglobin 12.2 GM/DL Hematocrit 35.8 % Mean Corpuscular Volume 106.5 FL Mean Corpuscular Hemoglobin 36.2 PG Mean Corpuscular Hemoglobin Concent 34.0 % Red Cell Distribution Width 15.4 % Platelet Count 36 TH/MM3 Mean Platelet Volume 8.7 FL Neutrophils (%) (Auto) 61.0 % Lymphocytes (%) (Auto) 31.4 % Monocytes (%) (Auto) 5.5 % Eosinophils (%) (Auto) 1.6 % Basophils (%) (Auto) 0.5 % Neutrophils # (Auto) 5.9 TH/MM3 Lymphocytes # (Auto) 3.0 TH/MM3 Monocytes # (Auto) 0.5 TH/MM3 Eosinophils # (Auto) 0.2 TH/MM3 Basophils # (Auto) 0.0 TH/MM3 CBC Comment AUTO DIFF Differential Comment AUTO DIFF CONFIRMED Blood Urea Nitrogen 9 MG/DL Creatinine 0.73 MG/DL Random Glucose 71 MG/DL Calcium Level 8.7 MG/DL Sodium Level 137 MEQ/L Potassium Level 3.8 MEQ/L Chloride Level 105 MEQ/L Carbon Dioxide Level 22.7 MEQ/L Anion Gap 9 MEQ/L Estimat Glomerular Filtration Rate 82 ML/MIN [facility] Supervised Visit with KEITH: Yes Narrative Course The history, exam, and medical decision-making in the associated midlevel provider note were completed with my assistance. I reviewed and agree with the findings presented. I attest that I had a [id number] encounter with the patient on the same day, and personally performed and documented my assessment and findings in the medical record. *My assessment and Findings: This is a 56-year-old female who presents to the emergency department with an abscess on her right lower extremity with surrounding cellulitis. She is nontoxic appearing, and has a normal white blood cell count. The cellulitis is limited. I think she is an appropriate candidate for Florencio's. An I and D was performed in the emergency department and the patient will be discharged. She seems reliable and will return to the emergency department if her symptoms worsen. Procedures Procedure Narrative [id number] ultrasound: Definite abscess underlying the right lower extremity cellulitis Lali Rich MD Jan 16, 2017 15:03
[2017-02-27] MEDS ORDERED: HYDR12.57 PO (10:17)
[2017-02-27] MEDS ORDERED: LISI-515 PO (10:17)
== END 2017-01-16 17:55 | disposition home or self-care (01) ==
LOC: NEPD 11:22
DX: L02.415 Cutaneous abscess of right lower limb (principal); B95.62 Methicillin resistant Staphylococcus aureus infection as the cause of diseases classified elsewhere
CPT/HCPCS: 10061; 80048; 85025; 86403; 87040; 87070; 87186; 96361; 96365; 99285; J0875; J7030; J7060; 87205

== ENCOUNTER 2017-01-18 10:54 | Emergency (ER) | payer OTHER ==
[~2017-01-18] VITALS: Ht 162.6 cm; Wt 100.0 kg
[2017-01-18 10:57] VITALS: BP 174/98; PULSE 96; RESP 16; TEMP 97.7; O2SAT 99
[2017-02-27] MEDS ORDERED: LISI-515 PO (10:17)
[2017-02-27] MEDS ORDERED: HYDR12.57 PO (10:17)
== END 2017-01-18 12:21 | disposition left against medical advice (07) ==
LOC: NED 10:54
DX: Z53.21 Procedure and treatment not carried out due to patient leaving prior to being seen by health care provider (principal)
CPT/HCPCS: 99281

== ENCOUNTER 2017-01-18 16:40 | Inpatient (IN) | payer OTHER ==
[~2017-01-18] VITALS: Ht 157.5 cm; Wt 90.0 kg
[2017-01-18 16:48] VITALS: BP 154/78; PULSE 84; RESP 15; TEMP 98.4; O2SAT 99
--- NOTE | 2017-01-18 16:48 | PD ---
Physical Exam Date Seen by Provider: Jan 18, 2017 Time Seen by Provider: 16:46 Narrative 56- year old female here with a right lower extremity wound for the past 6 days. The patient's PCP is Dr. Munson. The patient reports she has not been to her PCP for this wound. She was seen in the ED three days ago. Drain fell out, she reports chills but denies any fevers. Patient is awaiting bed placement. Data Data Last Documented VS Vital Signs Date Time Temp Pulse Resp B/P (MAP) Pulse Ox O2 Delivery O2 Flow Rate FiO2 01/18/17 16:48 98.4 84 15 154/78 (103) 99 MDM Medical Record Reviewed: Yes Supervised Visit with KEITH: No Condition: Stable Patricia Burton Jan 18, 2017 16:48
[2017-01-18] MEDS ORDERED: VANCOMYCIN INJ 1,000 MG in SODIUM CHLOR 0.9% 250 ML INJ 250 ML IV STA (20:09)
[2017-01-18] MEDS ORDERED: ONDANSETRON HCL 4 MG/2 ML VIAL IV PUSH ONE (20:15)
[2017-01-18] MEDS ORDERED: SODIUM CHLOR 0.9% 1000 ML INJ 1,000 ML IV ONE (20:15)
[2017-01-18] MEDS ORDERED: MORPHINE SULFATE 4 MG/ML INJ IV PUSH ONE (20:15)
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
[2017-01-18 20:54] LABS: BASOPHIL # 0.1 TH/MM3 (0-0.2); EOSINOPHIL # 0.4 TH/MM3 (0-0.4); EOSINOPHIL % 5.2 % (0.0-4.0); HEMATOCRIT 35.2 % (35.0-46.0); LYMPH % 62.1 % (9.0-44.0); LYMPHOCYTE # 5.1 TH/MM3 (1.0-4.8); MEAN CELL VOLUME 107.8 FL (80.0-100.0); MEAN CORPUSCULAR HEMOGLOBIN 35.1 PG (27.0-34.0); MEAN CORPUSCULAR HGB CONC 32.6 % (32.0-36.0); MONO % 7.7 % (0.0-8.0); PLATELET COUNT 77 TH/MM3 (150-450); RED BLOOD COUNT 3.27 MIL/MM3 (4.00-5.30); RED CELL DISTRIBUTION WIDTH 15.9 % (11.6-17.2); WHITE BLOOD COUNT 8.2 TH/MM3 (4.0-11.0)
[2017-01-18 21:05] LABS: HEMO FLAGS AUTO DIFF
[2017-01-18 21:12] LABS: ALKALINE PHOSPHATASE 94 U/L (45-117); ALT (GPT) 44 U/L (10-53); TOTAL BILIRUBIN ADULT 0.5 MG/DL (0.2-1.0)
[2017-01-18 21:13] LABS: ANION GAP 10 MEQ/L (5-15); APTT (PATIENT) 25.7 SEC (24.3-30.1); AST (GOT) 71 U/L (15-37); BICARBONATE 19.1 MEQ/L (21.0-32.0); BLOOD UREA NITROGEN 9 MG/DL (7-18); CHLORIDE 110 MEQ/L (98-107); GLOMERULAR FILTRATION RATE 78 ML/MIN (>89); INTERNATIONAL NORMALIZED RATIO 1.1 RATIO; POTASSIUM 4.5 MEQ/L (3.5-5.1); PROTHROMBIN TIME - PATIENT 12.4 SEC (9.8-11.6); SODIUM (NA) 139 MEQ/L (136-145)
[2017-01-18 21:26] LABS: SCAN/DIFF AUTO DIFF CONFIRMED
[2017-01-18 21:48] VITALS: BP 132/74; PULSE 64; PULSE 74; RESP 20; O2SAT 98
[2017-01-18 21:51] VITALS: O2SAT 98
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
[2017-01-18] MEDS ORDERED: LORazepam 0.5 MG TAB PO ONE (22:00)
[2017-01-18] MEDS ORDERED: FLUMAZENIL 0.5 MG/5 ML VIAL IV PUSH PRN (22:00)
[2017-01-18] MEDS ORDERED: LORazepam 2 MG/ML VIAL IV PUSH PRN ×4 (22:00)
[2017-01-18] MEDS ORDERED: HALOPERIDOL LACTATE 5 MG/ML AMP IM PRN (22:00)
[2017-01-18] MEDS ORDERED: Vancomycin Consult Pharmacy 1 EA OTHER SCH (22:00)
[2017-01-18] MEDS ORDERED: LORazepam 2 MG TAB PO PRN (22:00)
[2017-01-18 22:46] LABS: LACTIC ACID GHOST NOT REPORTABLE
[2017-01-18] MEDS ORDERED: VANCOMYCIN 1,000 MG/NS 250 ML IV ONE ×2 (23:00)
[2017-01-18] MEDS: CEFEPIME INJ 1,000 MG in SODIUM CHLORIDE 0.9% INJ 100 ML IV SCH (23:01)
[2017-01-18 23:10] VITALS: BP 122/61; PULSE 81; RESP 20; O2SAT 91
[2017-01-19 02:02] VITALS: BP 118/58; PULSE 80; RESP 18; O2SAT 94
[2017-01-19 02:58] VITALS: BP 121/65; PULSE 76; RESP 18; TEMP 97.5; O2SAT 100
[2017-01-19] MEDS: LORazepam 1 MG TAB PO PRN ×2 (03:20→13:45)
[2017-01-19 08:00] VITALS: BP 164/18; PULSE 81; RESP 16; TEMP 98.6; O2SAT 93
[2017-01-19] MEDS ORDERED: ARIPiprazole 10 MG TAB PO SCH (09:00)
[2017-01-19] MEDS: VENLAFAXINE HCL XR 75 MG CAP PO SCH (09:09)
[2017-01-19] MEDS: MULTIVITAMINS/MINERALS THERAPEUTIC TAB PO SCH (09:09)
[2017-01-19] MEDS: FOLIC ACID 1 MG TAB PO SCH (09:10)
[2017-01-19] MEDS: THIAMINE HCL 100 MG TAB PO SCH (09:10)
[2017-01-19] MEDS: ACETAMINOPHEN 500 MG CPLT PO PRN (09:10)
[2017-01-19] MEDS: CEFEPIME INJ 1,000 MG in SODIUM CHLORIDE 0.9% INJ 100 ML IV SCH ×2 (09:42→23:04)
[2017-01-19 12:00] VITALS: BP 174/74; PULSE 82; RESP 16; TEMP 98.8; O2SAT 93
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
[2017-01-19] MEDS ORDERED: PIPERACIL-TAZO 3.375 GM PREMIX 50 ML IV SCH (12:15)
[2017-01-19] MEDS: VANCOMYCIN 1,500 MG/NS 500 ML IV SCH ×2 (12:21)
[2017-01-19] MEDS: ARIPiprazole 30 MG TAB PO SCH (12:21)
--- NOTE | 2017-01-19 12:34 | PD.PSY.CON ---
Provisional Diagnosis Admission Date Jan 18, 2017 at 21:45 [place] I. Alcohol dependence History of Present Illness Service Psychiatry Consult Requested By Attending physician Reason for Consult Micky acted for suicidal ideation Primary Care Physician Ramila Munson MD HPI 56-year-old female Micky acted in our emergency department for suicidal comments. Patient has multiyear history of alcoholism and is a daily drinker. Apparently has problems with wound infection and lower extremity and is accepting help for this problem. Gently confronted by this physician that patient wants help for wound and states that she is suicidal at the same time. She does not appreciate the contradiction in her presentation. She does admit to anxiety and continues to be drug seeking for amelioration. This physician understands patient on C while protocol but is willing to provide small amounts of Ativan or other anti-anxiety medication while patient in hospital. Patient needs to stop consumption of alcohol to alleviate depressive complaints. This physician does not feel she qualifies for inpatient psychiatric hospitalization as primary problem is alcoholism. Review of Systems Except as stated in HPI: all other systems reviewed are Neg Past Family Social History Coded Allergies: *MDRO Multi-Drug Resistant Organism (Verified Adverse Reaction, Unknown, ) MRSA (arm) 12/12/16 Active Scripts Venlafaxine ER 24 HR (Effexor XR 24 HR) 75 Mg Cap, 150 MG PO DAILY for Control Depression, #30 CAP Prov:Abiodun Major MD 12/19/16 Mirtazapine ODT (Mirtazapine ODT) 30 Mg Tab, 30 MG PO HS for Control Depression , #30 TAB Prov:Abiodun Major MD 12/19/16 Lisinopril (Lisinopril) 20 Mg Tab, 20 MG PO DAILY for Blood Pressure Management , #30 TAB Prov:Abiodun Major MD 12/19/16 Reported Medications Hydroxyzine Pamoate (Hydroxyzine Pamoate) 25 Mg Cap, 25 MG PO TID Y for ANXIETY , CAP 0 Refills 08/14/16 Aripiprazole (Abilify) 10 Mg Tab, 30 MG PO DAILY, #0 TAB 0 Refills 04/09/16 Discontinued Reported Medications Trazodone (Trazodone) 50 Mg Tab, 50 MG PO HS for Control Depression, #30 TAB 0 Refills 08/14/16 Discontinued Scripts Hydrocodone-Acetaminophen (Hydrocodone-Acetaminophen) 5-325 mg Tab, 1 TAB PO Q4H Y for pain 1-7, #10 TAB Prov:Abiodun Major MD 12/19/16 Thiamine HCl (Gnp Vitamin B-1) 100 Mg Tab, 100 MG PO DAILY for Alcohol Detox, # 30 TAB Prov:Abiodun Major MD 12/19/16 Clonidine (Catapres) 0.1 Mg Tab, 0.1 MG PO BID for Blood Pressure Management, # 60 TAB Prov:Abiodun Major MD 12/19/16 Silver Sulfadiazine Topical (SSD Topical) 1 % Cream, 1 APPLIC TOPICAL Q12HR for Infection, #1 TUBE Prov:Abiodun Major MD 12/19/16 Lactobacillus Acidophilus (Lactinex) 1 Chew, 1 TAB CHEW DAILY for Nutritional Supplement, #30 TAB 0 Refills Prov:Abiodun Major MD 12/19/16 Clindamycin (Clindamycin) 300 Mg Cap, 300 MG PO TID for Infection, #30 CAP 0 Refills Prov:Abiodun Major MD 12/19/16 Current Medications Medications (Trade) Dose Ordered Sig/Iftikhar Route Start Time Stop Time Status Last Admin Pharmacy Profile Note 0 ml @ 0 mls/hr UNSCH OTHER 01/18/17 22:00 Cefepime HCl 1000 mg/Sodium Chloride 100 ml @ 200 mls/hr Q12H IV 01/18/17 22:00 01/19/17 09:42 (Folate) 1 mg DAILY PO 01/19/17 09:00 01/24/17 08:59 01/19/17 09:10 (Vitamin B1) 100 mg DAILY PO 01/19/17 09:00 01/19/17 09:10 (Theragran M Tab) 1 tab DAILY PO 01/19/17 09:00 01/24/17 08:59 01/19/17 09:09 (Romazicon Inj) 0.2 mg Q1M PRN IV PUSH 01/18/17 22:00 (Ativan) 1 mg Q4H PRN PO 01/18/17 22:00 01/19/17 03:20 (Ativan Inj) 1 mg Q4H PRN IV PUSH 01/18/17 22:00 (Ativan) 2 mg Q2H PRN PO 01/18/17 22:00 (Ativan Inj) 2 mg Q2H PRN IV PUSH 01/18/17 22:00 (Ativan Inj) 2 mg Q1H PRN IV PUSH 01/18/17 22:00 (Ativan Inj) 2 mg Q15M PRN IV PUSH 01/18/17 22:00 (Haldol Inj) 2 mg Q15M PRN IM 01/18/17 22:00 (Remeron Soltab Odt) 30 mg HS PO 01/19/17 21:00 (Effexor Xr) 150 mg DAILY PO 01/19/17 09:00 01/19/17 09:09 (Tylenol) 500 mg Q4H PRN PO 01/19/17 08:30 01/19/17 09:10 (Abilify) 30 mg DAILY PO 01/19/17 10:30 Vancomycin HCl 1500 mg/Sodium Chloride 515 ml @ 257.5 mls/ hr Q12H IV 01/19/17 12:00 Miscellaneous Information SPECIFIC LAB TO BE JESÚS... ONCE ONCE .XX 01/20/17 11:45 01/20/17 11:46 Family History Positive for alcoholism. Social History and lives with her , who is supportive. Patient is not employed. Long history of daily consumption of alcohol. Patient's Strengths (min. 2) Verbal and has access to healthcare. Physical Exam Vital Signs Vital Signs Date Time Temp Pulse Resp B/P (MAP) Pulse Ox O2 Delivery O2 Flow Rate FiO2 01/19/17 08:00 98.6 81 16 164/18 (66) 93 01/19/17 02:02 Room Air 01/18/17 23:10 1.50 Lab Results Test 01/18/17 20:25 01/18/17 20:30 01/18/17 20:46 01/18/17 21:25 White Blood Count 8.2 TH/MM3 Red Blood Count 3.27 MIL/MM3 Hemoglobin 11.5 GM/DL Hematocrit 35.2 % Mean Corpuscular Volume 107.8 FL Mean Corpuscular Hemoglobin 35.1 PG Mean Corpuscular Hemoglobin Concent 32.6 % Red Cell Distribution Width 15.9 % Platelet Count 77 TH/MM3 Mean Platelet Volume 8.0 FL Neutrophils (%) (Auto) 24.0 % Lymphocytes (%) (Auto) 62.1 % Monocytes (%) (Auto) 7.7 % Eosinophils (%) (Auto) 5.2 % Basophils (%) (Auto) 1.0 % Neutrophils # (Auto) 2.0 TH/MM3 Lymphocytes # (Auto) 5.1 TH/MM3 Monocytes # (Auto) 0.6 TH/MM3 Eosinophils # (Auto) 0.4 TH/MM3 Basophils # (Auto) 0.1 TH/MM3 CBC Comment AUTO DIFF Differential Comment AUTO DIFF CONFIRMED Prothrombin Time 12.4 SEC Prothromb Time International Ratio 1.1 RATIO Activated Partial Thromboplast Time 25.7 SEC Blood Urea Nitrogen 9 MG/DL Creatinine 0.77 MG/DL Random Glucose 74 MG/DL Total Protein 8.2 GM/DL Albumin 2.8 GM/DL Calcium Level 8.1 MG/DL Alkaline Phosphatase 94 U/L Aspartate Amino Transf (AST/SGOT) 71 U/L Alanine Aminotransferase (ALT/SGPT) 44 U/L Total Bilirubin 0.5 MG/DL Sodium Level 139 MEQ/L Potassium Level 4.5 MEQ/L Chloride Level 110 MEQ/L Carbon Dioxide Level 19.1 MEQ/L Anion Gap 10 MEQ/L Estimat Glomerular Filtration Rate 78 ML/MIN Lactic Acid Level 2.4 mmol/L Ethyl Alcohol Level 175 MG/DL Urine Opiates Screen NEG Urine Barbiturates Screen NEG Urine Amphetamines Screen NEG Urine Benzodiazepines Screen NEG Urine Cocaine Screen NEG Urine Cannabinoids Screen NEG Test 01/18/17 23:05 Lactic Acid Level 1.8 mmol/L Date/Time Source Procedure Growth Status 01/18/17 20:30 Blood Peripheral Aerobic Blood Culture - Preliminary NO GROWTH IN 1 DAY Resulted 01/18/17 20:30 Blood Peripheral Anaerobic Blood Culture - Preliminary NO GROWTH IN 1 DAY Resulted Mental Status Examination Speech: Unremarkable Orientation: x3 Memory: Unremarkable Thought Process: Organized, Goal Directed Thought Content: Unremarkable Hallucination Type: None Attention and Concentration: Good Suicidal Ideation: Yes Previous Suicide Attempts: Yes Homicidal Ideation: No Previous Homicide Attempts: No Insight: Fair Judgment: Unrealistic Affect: Other Affect if Inappropriate: Blunt Mood: Anxious Motor Activity: Normal gait Assessment & Plan Problem List: (1) Adjustment disorder with mixed disturbance of emotions and conduct ICD Codes: F43.25 - Adjustment disorder with mixed disturbance of emotions and conduct Assessment & Plan Estimated LOS: days. Recommend continued C I W a protocol. Recommend patient totally stop consumption of alcohol. Will provide medication assistance to address anxiety but do not suggest patient be given sufficient amounts to "get high". Patient cleared for discharge from psychiatric standpoint. This physician does not feel patient meets criteria for Weeks act. Navi Youngblood MD Jan 19, 2017 12:34
[2017-01-19 16:00] VITALS: BP 161/86; PULSE 84; RESP 17; TEMP 98.4; O2SAT 96
[2017-01-19] MEDS: traMADol HCL 50 MG TAB PO PRN (16:43)
[2017-01-19] MEDS ORDERED: LISINOPRIL 20 MG TAB PO ONE (17:30)
[2017-01-19] MEDS: MIRTAZAPINE ODT 30 MG TAB PO SCH (20:52)
[2017-01-19 21:10] VITALS: BP 153/82; PULSE 82; RESP 18; TEMP 95.8; O2SAT 100
[2017-01-20] VITALS (7 sets, daily range): BP systolic 149–175; BP diastolic 71–97; PULSE 74–113; RESP 16–18; TEMP 95.8–98.9; O2SAT 93–100
[2017-01-20] MEDS: VANCOMYCIN 1,500 MG/NS 500 ML IV SCH ×6 (01:00→12:00)
[2017-01-20] MEDS: traMADol HCL 50 MG TAB PO PRN ×4 (04:12→22:24)
[2017-01-20] MEDS ORDERED: LISINOPRIL 20 MG TAB PO SCH (09:00)
[2017-01-20] MEDS: ARIPiprazole 30 MG TAB PO SCH (09:10)
[2017-01-20] MEDS: FOLIC ACID 1 MG TAB PO SCH (09:10)
[2017-01-20] MEDS: THIAMINE HCL 100 MG TAB PO SCH (09:10)
[2017-01-20] MEDS: MULTIVITAMINS/MINERALS THERAPEUTIC TAB PO SCH (09:11)
[2017-01-20] MEDS: VENLAFAXINE HCL XR 75 MG CAP PO SCH (09:11)
[2017-01-20] MEDS: LORazepam 1 MG TAB PO PRN ×2 (09:11→18:09)
[2017-01-20] MEDS: CEFEPIME INJ 1,000 MG in SODIUM CHLORIDE 0.9% INJ 100 ML IV SCH ×2 (09:14→22:24)
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
[2017-01-20] MEDS ORDERED: PHARMACY ORDERED LAB ONE ×2 (11:45→23:45)
[2017-01-20] MEDS ORDERED: LISINOPRIL 20 MG TAB PO ONE (13:00)
[2017-01-20] MEDS: MIRTAZAPINE ODT 30 MG TAB PO SCH (22:24)
[2017-01-21] VITALS: BP 154/74; PULSE 77; RESP 20; TEMP 98.2; O2SAT 95
[2017-01-21] MEDS: VANCOMYCIN 1,500 MG/NS 500 ML IV SCH ×2 (00:17)
[2017-01-21 04:00] VITALS: BP 173/90; PULSE 82; RESP 20; TEMP 97.5; O2SAT 95
[2017-01-21] MEDS: traMADol HCL 50 MG TAB PO PRN ×2 (06:20→12:48)
[2017-01-21 08:42] VITALS: BP 177/101; PULSE 76; RESP 22; TEMP 98; O2SAT 95
[2017-01-21] MEDS ORDERED: LISINOPRIL 20 MG TAB PO SCH (09:00)
[2017-01-21] MEDS: MULTIVITAMINS/MINERALS THERAPEUTIC TAB PO SCH (09:48)
[2017-01-21] MEDS: VENLAFAXINE HCL XR 75 MG CAP PO SCH (09:48)
[2017-01-21] MEDS: ARIPiprazole 30 MG TAB PO SCH (09:49)
[2017-01-21] MEDS: FOLIC ACID 1 MG TAB PO SCH (09:49)
[2017-01-21] MEDS: THIAMINE HCL 100 MG TAB PO SCH (09:49)
[2017-01-21] MEDS: CEFEPIME INJ 1,000 MG in SODIUM CHLORIDE 0.9% INJ 100 ML IV SCH (09:52)
[2017-01-21] MEDS ORDERED: INFLUENZA VIRUS VACCINE (QUADRIVALENT) 0.5 ML SYR IM ONE (10:00)
[2017-01-21] MEDS ORDERED: PNEUMOCOCCAL POLYVALENT INJ 25 MCG/0.5 ML SYR IM ONE (10:00)
[2017-01-21] MEDS: ACETAMINOPHEN 500 MG CPLT PO PRN (10:03)
[2017-01-21] MEDS ORDERED: HYDROCHLOROTHIAZIDE 12.5 MG CAP PO SCH (10:15)
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
[2017-01-21 11:34] VITALS: BP 164/83; PULSE 74; RESP 22; TEMP 98.2; O2SAT 93
[2017-01-21] MEDS ORDERED: GNP100TA3 PO ×2 (13:57→14:31)
[2017-01-21] MEDS ORDERED: HYDR12.57 PO ×2 (13:57→14:31)
[2017-01-21] MEDS ORDERED: FOLI1TAB6 PO ×2 (13:57→14:31)
[2017-01-21] MEDS ORDERED: ULTR50TA5 PO ×2 (13:57→14:31)
[2017-01-21] MEDS ORDERED: THERM PO ×2 (13:57→14:31)
[2017-01-21] MEDS ORDERED: LISI-515 PO ×2 (13:57→14:31)
[2017-01-21] MEDS ORDERED: CLIN1CAP6 PO ×2 (13:58→14:31)
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
[2017-01-21 16:24] VITALS: BP_SYST 125; BP_SYST 199; BP_DIAS 79; BP_DIAS 95; PULSE 74; PULSE 98; RESP 20; RESP 22; TEMP 98.2; TEMP 98.9; O2SAT 92; O2SAT 95
[2017-02-27] MEDS ORDERED: HYDR12.57 PO (10:17)
[2017-02-27] MEDS ORDERED: LISI-515 PO (10:17)
== END 2017-01-21 17:30 | disposition home or self-care (01) | DRG 603 ==
LOC: NEPE 16:40 → NEDA 21:45 → N05B 01-19 02:31
PROVIDERS: ADMIT Internal Medicine; ATTEND Internal Medicine
DX: L03.115 Cellulitis of right lower limb (principal); R45.851 Suicidal ideations; I10 Essential (primary) hypertension; J44.9 Chronic obstructive pulmonary disease, unspecified; F41.9 Anxiety disorder, unspecified; M19.90 Unspecified osteoarthritis, unspecified site; G43.909 Migraine, unspecified, not intractable, without status migrainosus; F17.210 Nicotine dependence, cigarettes, uncomplicated; B19.20 Unspecified viral hepatitis C without hepatic coma; F10.10 Alcohol abuse, uncomplicated; Z91.19 Patient's noncompliance with other medical treatment and regimen
CPT/HCPCS: 76937; 80053; 80202; 80307; 82948; 83605; 85025; 85610; 85730; 87040; 90471; 90732; 96365; 96375; G0009; J0692; J2270; J2405; J3370; J7030; J7040; J7050

== ENCOUNTER 2017-02-24 19:16 | Emergency (ER) | payer OTHER ==
[~2017-02-24 19:16] MED LIST changes: -CLON.1 PO; +FOLI1TAB6 PO; -GNP100TA3 PO; -HYDR-3516 PO; +HYDR12.57 PO; -LACTCHW3 CHEW; -SSD1CRE TOPICAL; -TRAZ50TA12 PO
[2017-02-24 19:26] VITALS: BP 141/77; PULSE 80; RESP 18; TEMP 98.7; O2SAT 94
[2017-02-24] MEDS ORDERED: ACETAMINOPHEN 325 MG TAB PO ONE (19:45)
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
--- NOTE | 2017-02-24 20:21 | RADRPT ---
EXAM DATE/TIME: 02/24/2017 20:00 [facility] COMPARISON: CT BRAIN W/O CONTRAST, November 05, 2016, 10:30. INDICATIONS : Trauma, fall. RADIATION DOSE: 30.38 CTDIvol (mGy) MEDICAL HISTORY : Hepatitis C. Cardiovascular disease Hypertension. SURGICAL HISTORY : None. ENCOUNTER: Initial ACUITY: 1 day PAIN SCALE: 8/10 LOCATION: cranial TECHNIQUE: Multiple contiguous axial images were obtained of the head. Using automated exposure control and adj ustment of the mA and/or kV according to patient size, radiation dose was kept as low as reasonably a chievable to obtain optimal diagnostic quality images. DICOM format image data is available electro nically for review and comparison. FINDINGS: The patient's head is canted in the gantry, creating left right asymmetries. CEREBRUM: The ventricles are normal for age. No evidence of midline shift, mass lesion, hemorrhage or acute in farction. No extra-axial fluid collections are seen. POSTERIOR FOSSA: The cerebellum and brainstem are intact. The 4th ventricle is midline. The cerebellopontine angle i s unremarkable. EXTRACRANIAL: The visualized portion of the orbits is intact. SKULL: The calvaria is intact. No evidence of skull fracture. CONCLUSION: Negative noncontrast CT brain. Quan Perez MD on February 24, 2017 at 20:17 Board Certified Radiologist. This report was verified electronically.
--- NOTE | 2017-02-24 20:33 | RADRPT ---
EXAM DATE/TIME: 02/24/2017 20:00 [facility] COMPARISON: CT CERVICAL SPINE W/O CONTRAST, November 05, 2016, 10:30. INDICATIONS : Trauma, fall. RADIATION DOSE: 20.49 CTDIvol (mGy) MEDICAL HISTORY : Hypertension. Hepatitis C. Cardiovascular disease SURGICAL HISTORY : None. ENCOUNTER: Initial ACUITY: 1 day PAIN SCALE: 8/10 LOCATION: neck TECHNIQUE: Volumetric scanning of the cervical spine was performed. Multiplanar reconstructions in the sagittal, coronal and oblique axial planes were performed. Using automated exposure control and adjustment o f the mA and/or kV according to patient size, radiation dose was kept as low as reasonably achievable to obtain optimal diagnostic quality images. DICOM format image data is available electronically f or review and comparison. FINDINGS: There is reversal of the cervical lordosis from C2-C4. Vertebral body height is maintained. No evid ence of spondylolisthesis. Moderate discogenic degenerative changes are present at C5-6 and C6-7 wit h prominent anterior and posterior osteophytes. The posterior elements are in normal alignment witho ut evidence of locked or perched facets. Moderate degenerative changes are seen in the facet joints from C4-C7. The atlantoaxial articulation is intact. C2-C3: No fracture seen. The neural foramina are patent. C3-C4: No fracture seen. The neural foramina are patent. C4-C5: No fracture seen. The neural foramina are patent. C5-C6: No fracture seen. The neural foramina are patent. C6-C7: No fracture seen. The neural foramina are patent. C7-T1: No fracture seen. The neural foramina are patent. CONCLUSION: Reversal of the upper cervical lordosis without evidence of compression deformity or spondylolisthesi chelsy Perez MD on February 24, 2017 at 20:19 Board Certified Radiologist. This report was verified electronically.
[2017-02-24 23:00] VITALS: BP 134/78; PULSE 70; RESP 18; O2SAT 94
[2017-02-25 05:38] VITALS: BP 130/76; PULSE 72; RESP 20; O2SAT 95
[2017-02-27] MEDS ORDERED: LISI-515 PO (10:17)
[2017-02-27] MEDS ORDERED: HYDR12.57 PO (10:17)
== END 2017-02-25 05:39 | disposition home or self-care (01) ==
LOC: NEPD 19:16 → NEDAMB 02-25 05:39
DX: F10.129 Alcohol abuse with intoxication, unspecified (principal); S50.312A Abrasion of left elbow, initial encounter; S80.212A Abrasion, left knee, initial encounter; J44.9 Chronic obstructive pulmonary disease, unspecified; I10 Essential (primary) hypertension; V18.0XXA Pedal cycle driver injured in noncollision transport accident in nontraffic accident, initial encounter
CPT/HCPCS: 70450; 72125; 80307; 99285

== ENCOUNTER 2017-05-04 08:57 | Inpatient (IN) | payer OTHER ==
[~2017-05-04] VITALS: Ht 157.5 cm; Wt 95.6 kg
[~2017-05-04 08:57] MED LIST changes: +ABIL10TA8 PO; -ARIP1TAB5 PO; -CLIN1CAP6 PO
[2017-05-04 09:01] VITALS: BP 159/87; PULSE 112; RESP 16; TEMP 97.8; O2SAT 98
[2017-05-04] MEDS ORDERED: SODIUM CHLOR 0.9% 1000 ML INJ 1,000 ML IV SCH (09:28)
[2017-05-04] MEDS ORDERED: SODIUM CHLORIDE 0.9% FLUSH 10 ML FLUSH IVF PRN (09:30)
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
[2017-05-04 10:00] LABS: AUTOMATED NEUTROPHIL # 3.5 TH/MM3 (1.8-7.7); BASOPHIL # 0.1 TH/MM3 (0-0.2); BASOPHIL % 0.9 % (0.0-2.0); EOSINOPHIL # 0.1 TH/MM3 (0-0.4); LYMPH % 34.5 % (9.0-44.0); LYMPHOCYTE # 2.1 TH/MM3 (1.0-4.8); NEUT % 56.6 % (16.0-70.0); PLATELET COUNT 53 TH/MM3 (150-450); RED BLOOD COUNT 3.31 MIL/MM3 (4.00-5.30); RED CELL DISTRIBUTION WIDTH 15.4 % (11.6-17.2); WHITE BLOOD COUNT 6.2 TH/MM3 (4.0-11.0)
[2017-05-04 10:01] LABS: HEMO FLAGS AUTO DIFF
[2017-05-04 10:08] LABS: APTT (PATIENT) 25.5 SEC (24.3-30.1); INTERNATIONAL NORMALIZED RATIO 1.3 RATIO; PROTHROMBIN TIME - PATIENT 12.9 SEC (9.8-11.6)
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
[2017-05-04 10:25] LABS: BICARBONATE 22.5 MEQ/L (21.0-32.0); POTASSIUM 4.9 MEQ/L (3.5-5.1)
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
[2017-05-04 10:33] LABS: PLATELET ESTIMATE SMEAR LOW (NORMAL); PLATELET MORPHOLOGY NORMAL (NORMAL); SCAN/DIFF AUTO DIFF CONFIRMED
[2017-05-04] MEDS ORDERED: IOHEXOL 350 MG/ML 10 ML VIAL (for RAD DIAG) IVCONTRAST ONE (11:00)
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
[2017-05-04] MEDS ORDERED: MORPHINE SULFATE 2 MG/ML INJ IV PUSH ONE (12:00)
[2017-05-04] MEDS ORDERED: ONDANSETRON HCL 4 MG/2 ML VIAL IV PUSH PRN (12:45)
[2017-05-04] MEDS ORDERED: MISCELLANEOUS NURSING INFORMATION XX SCH (12:45)
[2017-05-04] MEDS ORDERED: ACETAMINOPHEN/HYDROcodone 325 MG/5 MG TAB PO PRN (12:45)
[2017-05-04] MEDS ORDERED: CHLORHEXIDINE GLUCONATE 2 % 1 PACK (2 CLOTHS) TOP PRN (12:45)
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
[2017-05-04] MEDS ORDERED: FOLIC ACID 1 MG TAB PO SCH (13:00)
[2017-05-04 13:15] VITALS: BP 134/80; PULSE 91; RESP 16; O2SAT 98
[2017-05-04] MEDS: LISINOPRIL 20 MG TAB PO SCH (13:58)
[2017-05-04] MEDS: HYDROCHLOROTHIAZIDE 12.5 MG CAP PO SCH (13:58)
[2017-05-04] MEDS: MULTIVITAMIN TAB PO SCH (13:58)
[2017-05-04] MEDS: VENLAFAXINE HCL XR 75 MG CAP PO SCH (13:58)
[2017-05-04] MEDS: THIAMINE HCL 100 MG TAB PO SCH (13:58)
[2017-05-04] MEDS: FOLIC ACID 1 MG TAB PO SCH (13:59)
[2017-05-04] MEDS: ARIPiprazole 30 MG TAB PO SCH (13:59)
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
[2017-05-04] MEDS ORDERED: DOCU1CAP39 PO (15:57)
[2017-05-04 16:00] VITALS: BP 117/69; PULSE 83; RESP 20; TEMP 97.7; O2SAT 95
[2017-05-04] MEDS: ACETAMINOPHEN/HYDROcodone 325 MG/5 MG TAB PO PRN ×2 (16:00→21:20)
[2017-05-04 20:00] VITALS: BP 112/69; PULSE 73; RESP 20; TEMP 96.8; O2SAT 93
[2017-05-04] MEDS: DOCUSATE SODIUM 100 MG CAP PO SCH (21:00)
[2017-05-04] MEDS: MIRTAZAPINE ODT 30 MG TAB PO SCH (21:19)
[2017-05-05] VITALS: BP 100/55; PULSE 77; RESP 18; TEMP 97.1; O2SAT 95
[2017-05-05] MEDS: ACETAMINOPHEN/HYDROcodone 325 MG/5 MG TAB PO PRN ×5 (01:26→20:58)
[2017-05-05] MEDS ORDERED: CHLORHEXIDINE GLUCONATE 2 % 1 PACK (2 CLOTHS) TOP SCH (04:00)
[2017-05-05 08:00] VITALS: BP 113/74; PULSE 80; RESP 18; TEMP 96.6; O2SAT 94
[2017-05-05] MEDS: VENLAFAXINE HCL XR 75 MG CAP PO SCH (08:17)
[2017-05-05] MEDS: THIAMINE HCL 100 MG TAB PO SCH (08:17)
[2017-05-05] MEDS: hydrOXYzine PAMOATE 25 MG CAP PO PRN ×2 (08:17→16:09)
[2017-05-05] MEDS: FOLIC ACID 1 MG TAB PO SCH (08:18)
[2017-05-05] MEDS: MULTIVITAMIN TAB PO SCH (08:18)
[2017-05-05] MEDS: ARIPiprazole 30 MG TAB PO SCH (08:19)
[2017-05-05 08:30] LABS: AUTOMATED NEUTROPHIL # 1.6 TH/MM3 (1.8-7.7); BASOPHIL % 0.8 % (0.0-2.0); EOSINOPHIL # 0.1 TH/MM3 (0-0.4); EOSINOPHIL % 2.6 % (0.0-4.0); HEMATOCRIT 32.9 % (35.0-46.0); LYMPH % 63.2 % (9.0-44.0); LYMPHOCYTE # 3.6 TH/MM3 (1.0-4.8); MEAN CELL VOLUME 108.8 FL (80.0-100.0); MEAN CORPUSCULAR HEMOGLOBIN 37.8 PG (27.0-34.0); MEAN CORPUSCULAR HGB CONC 34.7 % (32.0-36.0); NEUT % 27.4 % (16.0-70.0); PLATELET COUNT 53 TH/MM3 (150-450); RED BLOOD COUNT 3.03 MIL/MM3 (4.00-5.30); RED CELL DISTRIBUTION WIDTH 14.9 % (11.6-17.2); WHITE BLOOD COUNT 5.7 TH/MM3 (4.0-11.0)
[2017-05-05 08:32] LABS: HEMO FLAGS AUTO DIFF
[2017-05-05 08:48] LABS: BICARBONATE 24.2 MEQ/L (21.0-32.0); POTASSIUM 4.3 MEQ/L (3.5-5.1)
[2017-05-05] MEDS: DOCUSATE SODIUM 100 MG CAP PO SCH ×2 (09:00→20:35)
[2017-05-05 09:11] LABS: PLATELET ESTIMATE SMEAR LOW (NORMAL); PLATELET MORPHOLOGY NORMAL (NORMAL); POLYCHROMASIA 2.1 % (0.0-1.9); SCAN/DIFF AUTO DIFF CONFIRMED; TARGET CELLS 1+ (NORMAL)
[2017-05-05] MEDS ORDERED: PNEUMOCOCCAL POLYVALENT INJ 25 MCG/0.5 ML SYR IM ONE (10:00)
[2017-05-05] MEDS: HYDROCHLOROTHIAZIDE 12.5 MG CAP PO SCH (11:37)
[2017-05-05] MEDS: LISINOPRIL 20 MG TAB PO SCH (11:37)
[2017-05-05 12:00] VITALS: BP 121/77; PULSE 99; RESP 17; TEMP 96.8; O2SAT 93
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
[2017-05-05 16:00] VITALS: BP 108/66; PULSE 78; RESP 16; TEMP 96.9; O2SAT 93
[2017-05-05 20:00] VITALS: BP 135/63; PULSE 77; RESP 22; TEMP 96.5; O2SAT 93
[2017-05-05] MEDS: MIRTAZAPINE ODT 30 MG TAB PO SCH (20:35)
[2017-05-06] VITALS: BP 138/80; PULSE 82; RESP 20; TEMP 97; O2SAT 94
[2017-05-06] MEDS: ACETAMINOPHEN/HYDROcodone 325 MG/5 MG TAB PO PRN ×4 (01:09→15:25)
[2017-05-06] MEDS: VENLAFAXINE HCL XR 75 MG CAP PO SCH (07:55)
[2017-05-06] MEDS: THIAMINE HCL 100 MG TAB PO SCH (07:55)
[2017-05-06] MEDS: HYDROCHLOROTHIAZIDE 12.5 MG CAP PO SCH (07:56)
[2017-05-06] MEDS: MULTIVITAMIN TAB PO SCH (07:56)
[2017-05-06] MEDS: ARIPiprazole 30 MG TAB PO SCH (07:56)
[2017-05-06] MEDS: LISINOPRIL 20 MG TAB PO SCH (07:56)
[2017-05-06] MEDS: FOLIC ACID 1 MG TAB PO SCH (07:56)
[2017-05-06 08:00] VITALS: BP 113/76; PULSE 88; RESP 17; TEMP 97.1; O2SAT 94
[2017-05-06] MEDS: DOCUSATE SODIUM 100 MG CAP PO SCH (08:01)
[2017-05-06 12:00] VITALS: BP 121/72; PULSE 88; RESP 20; TEMP 97; O2SAT 97
[2017-05-06] MEDS ORDERED: HYDR-3516 PO (12:01)
[2017-05-06] MEDS: hydrOXYzine PAMOATE 25 MG CAP PO PRN (12:18)
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
== END 2017-05-06 16:13 | disposition home or self-care (01) | DRG 395 ==
LOC: NEPD 08:57 → NEDA 12:23 → OBSVTOIN 12:44 → N07B 15:47
PROVIDERS: ADMIT Surgery Trauma Surgery; ATTEND Surgery Trauma Surgery
DX: K66.1 Hemoperitoneum (principal); D69.6 Thrombocytopenia, unspecified; I10 Essential (primary) hypertension; F32.9 Major depressive disorder, single episode, unspecified; F10.20 Alcohol dependence, uncomplicated; M50.322 Other cervical disc degeneration at C5-C6 level; M25.511 Pain in right shoulder; V03.10XA Pedestrian on foot injured in collision with car, pick-up truck or van in traffic accident, initial encounter; W18.09XA Striking against other object with subsequent fall, initial encounter; B19.20 Unspecified viral hepatitis C without hepatic coma; F17.210 Nicotine dependence, cigarettes, uncomplicated; M19.90 Unspecified osteoarthritis, unspecified site
CPT/HCPCS: 29125; 70450; 71260; 72125; 72141; 73030; 73502; 74177; 80048; 85025; 85610; 85730; 94150; 96361; 96374; J2270; J7030; Q0177; Q9967

== ENCOUNTER 2018-06-10 13:15 | Inpatient (IN) ==
[2018-06-10] MEDS ORDERED: Sod Chloride 0.9% Inj 1,000 ML IV.SIG SCH ×2 (13:30→15:30)
--- NOTE | 2018-06-10 14:00 | XR ---
EXAM DATE: 06/10/2018 1:52 PM EST AGE/SEX: 58 years / Female INDICATIONS: Fever. CLINICAL DATA: This is the patient's initial encounter. Patient reports that signs and symptoms have been present for 1 day and indicates a pain score of 0/10. MEDICAL/SURGICAL HISTORY: . Hypertension. None. COMPARISON: No prior exams available for comparison. FINDINGS: A single AP view of the chest demonstrates the lungs to be symmetrically aerated without evidence of mass, infiltrate or effusion. The cardiomediastinal contours are unremarkable. Osseous structures a re intact. There is stable linear scarring in the right midlung. CONCLUSION: The lungs are clear. Electronically signed by: Justin Norman MD Board Certified Radiologist 06/10/2018 1:58 PM EST
[2018-06-10] MEDS ORDERED: Dextrose 50% in Water 50 ML Vial IV.PUSH ONE (14:13)
[2018-06-10] MEDS ORDERED: Dextrose 5% in Water Inj 1,000 ML IV.CONT SCH (14:15)
--- NOTE | 2018-06-10 14:25 | ED ---
HPI General Chief Complaint: Altered Mental Status Stated Complaint: Medical Time Seen by Provider: 06/10/18 13:19 Source: patient and EMS Mode of arrival: EMS Limitations: altered mental status History of Present Illness HPI narrative: 58-year-old female that presents to the ED via EVAC for evaluation of altered mental status. Per report per EVAC and per patient she is been confused for the past couple of hours. Patient has a strong history of psychiatric illness as well as alcoholism as well as hep C and COPD per medical records. Patient drinks daily and states that she drank yesterday. Per patient since waking up she is been feeling kind of confused. She states that she has been having swelling on her abdomen and some shortness of breath for the past 4 days but worse today. Apparently she is staying at a hotel and her significant other contacted EVAC because of the concern of the confusion. Per EVAC she was found to be slightly hypotensive in the 70s as well as hypoglycemic with a sugar in the 30s. She was given D50 with improvement of the sugar in the 90s and her BP came up to the 90s systolic with no treatment. Patient herself only complains of abdominal pain and shortness of breath as well as feeling very thirsty. She denies any urinary or bowel movement issues. She denies any fevers chills or sweats. No sick contacts. No cough. She is somewhat of a poor historian secondary to her alteration but she does appear to answer most questions appropriately. She is not a good historian about her own medical history however. Per patient she does take medications and per EVAC they are all for psychiatric conditions. 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 HEAD: Atraumatic. Normocephalic. EYES: Pupils equal and round. No scleral icterus. No injection or drainage. ENT: No nasal bleeding or discharge. Mucous membranes pink and moist. Tongue is midline. No uvula deviation. NECK: Trachea midline. No JVD. CARDIOVASCULAR: Regular rate and rhythm. No murmur appreciated. RESPIRATORY: No accessory muscle use. Clear to auscultation. Breath sounds equal bilaterally. GASTROINTESTINAL: Abdomen soft, non-tender, distended and tender throughout. Hepatic and splenic margins not palpable. MUSCULOSKELETAL: No obvious deformities. No clubbing. No cyanosis. No edema. Full range of motion of the upper and lower extremities bilaterally. 2+ pulses bilaterally. NEUROLOGICAL: Awake and alert. No obvious cranial nerve deficits. Motor grossly within normal limits. Normal speech. PSYCHIATRIC: Altered mood and affect; insight and judgment normal. Course Initial Documented Vital Signs Pulse Oximetry 95 06/10/18 13:26 Last Documented Vital Signs Temperature 96.3 F L 06/10/18 13:57 Pulse Rate 93 H 06/10/18 17:09 Respiratory Rate 22 06/10/18 17:09 Blood Pressure 99/48 L 06/10/18 17:09 Pulse Oximetry 96 06/10/18 17:09 Procedures Intubation Time Out Performed: Yes Sedative: none Laryngoscope: Flip ET Tube Size: 7.5 ET Tube Uncuffed: No Tube Secured Depth (cm): 22 Tube Secured Location: lips Tube Placement Confirmation: visualized tube passing through cords, equal breath sounds bilaterally, no breath sounds over epigastrium and confirmation by capnometry Patient Tolerated Procedure: no complications Additional Comments: Post intubation chest x-ray performed Medical Decision Making KEITH Attestation KEITH supervised visit: Yes Attestation: I, Dr. Cooper, have reviewed the advance practice practitioner' s documentation and am in agreement, met with the patient face to face, made the diagnosis, and the medical decision making was done by me. *My assessment and Findings: The patient is a 58-year-old female who presents to the emergency department via EMS for altered mental status. The patient apparently is staying at a hotel, was noted to be altered. EMS did an Accu-Chek, the patient's blood sugar was in the 20s and she was administered 25 mL's of D10 by EMS. The patient's blood sugar was reevaluated in the emergency department, was 29, therefore, the patient was administered 1 amp of D50. The patient is now awake, alert, and oriented. She does complain of heavy alcohol abuse, states she drinks 4 16 ounce cans of Natural Light daily. The patient notes increasing lethargy, now notes that she has increasing abdominal pain and edema. The patient was noted to be mildly hypothermic with her hypoglycemia, but denies taking any diabetic medications. As the patient does have mild hypothermia and hypoglycemia, consideration for sepsis is warranted. Therefore , lactic acid, blood culture, chest x-ray, and UA were performed. The patient has mild abdominal pain, and ultrasound will be performed to evaluate for significant intra-abdominal fluid, if positive the patient will need a paracentesis to evaluate for spontaneous bacterial peritonitis. As the patient was hypoglycemic x2, she will have q. 30-minute Accu-Cheks for 2 hours. The patient was placed on D5 one half normal saline, most likely will require admission to the intensive care unit if hypoglycemia persists. Physical examination does reveal a jaundiced patient with icterus, mild edema is noted, diffuse abdominal pain with no guarding or rigidity. The patient did have a tattoo of a heart under the right pannus just above the leg. There is no CVA tenderness, mild tachycardia with a heart rate of 100. addendum by Gita at 1810: At 1745 the patient was noted to have become bradycardic started to become hypotensive, shortly thereafter the patient became pulseless, CPR ACLS protocol initiated please see those forms for further detail. Please see procedure note for my intubation. Patient was provided with 2 bicarb , 1 amp of D50 , 2 rounds of epi along with optimal compressions. Got ROSC, levophed ordered, resume bicarb drip, d5 drip, Dr. Hawkins beater out leveling machine at bedside shortly after Rosc will resume care. MDM Narrative Medical decision making narrative: 58-year-old female who presents to the ED for evaluation of altered mental status. Patient was properly examined and was found to have signs and symptoms of unclear etiology but concerning for sepsis. Patient does appear to be distended with likely ascites. She does appear to be yellow secondary to likely cirrhosis. She is also hyperglycemic but unclear as patient is not a diabetic and denies taking any insulin. She was slightly hypotensive per EVAC but currently she is normotensive in the 120s. Labs and imaging were ordered. Patient will be started on sepsis protocol. Patient's blood sugar here who ended up being 20 and patient was given D50. My attending Dr. Cooper evaluated the patient and D 5 with saline was ordered for the patient as well as continuous monitor of hypoglycemia. Patient will likely have to be admitted for this. He also suggested possible paracentesis. Labs and imaging showed neutropenia, low platelets, coagulopathy with INR in the 2.9 , acute kidney injury/failure, hypoglycemia, elevated LFTs, lactic acidosis. Because of all of the multiple issues that the patient has recognitions for admission to the intensive care unit. CT scan still pending. Case was discussed with Dr. Hawkins who wanted in addition to the lab work already done to redo the CBC and BMP to make sure these are true values as well as to check Tylenol, aspirin, lithium and ABG levels. He wanted 2 A of bicarb given as well as the CT is to be done. He agrees admission to his service. Patient will be given 2 units of platelets and per beater out leveling machine recommendations 2 more liters of fluid will be given to the patient. Patient is a hard stick so we also had to have vascular access intervention to get IV access. Medical Screen Exam Complete: Yes Emergency Medical Condition: Yes Differential Diagnosis Differential Diagnosis: Altered mental status versus kidney failure versus acute kidney injury versus acidosis versus lactic acidosis versus sepsis versus coagulopathy versus low platelets versus ACS versus bacteremia versus alcohol abuse versus cirrhosis versus liver failure Medical Records Medical records reviewed: Yes I reviewed the patient's medical records. Lab Data Lab results reviewed: Yes I reviewed the patient's lab results. Result diagrams: 06/10/18 13:50 06/10/18 13:50 Lab Results 06/10/18 06/10/18 06/10/18 Range/Units 13:50 13:50 13:50 WBC 0.6 L (4.0-11.0) th/mm3 RBC 3.26 L (4.00-5.30) mil/mm3 Hgb 12.7 (11.6-15.3) gm/dL Hct 38.8 (35.0-46.0) % MCV 119.3 H (80.0-100.0) fL MCH 39.1 H (27.0-34.0) pg MCHC 32.8 (32.0-36.0) % RDW 17.9 H (11.6-17.2) % Plt Count 9 L* (150-450) th/mm3 MPV 9.1 (7.0-11.0) fL Prelim Diff (Auto) Manual diff required WBC Differential Manual diff final Seg Neuts % (Manual) 11 L (16-70) % Band Neuts % (Manual) 18 H (0-6) % Lymphocytes % (Manual) 41 (9-44) % Monocytes % (Manual) 3 (0-8) % Eosinophils % (Manual) 1 (0-4) % Metamyelocytes % (Man) 19 H (0-1) % Myelocytes % (Man) 8 H (0-0) % Abs Neuts (Manual) 0.3 L* (1.8-7.7) th/mm3 Nucleated RBCs/100 WBC 6 H (0-0) /100 WBC Differential Comment . Toxic Granulation 2+ H (None) Toxic Vacuolation Present H (None) Platelet Estimate Rare L (Normal) Platelet Morphology Normal (Normal) Polychromasia 2.5 H (0.0-1.9) % Basophilic Stippling Faint H (None) Tear Drop Cells 1+ H (None) PT 34.6 H (9.8-11.6) sec INR 3.4 Ratio APTT 43.0 H (23.4-31.7) sec Puncture Site Patient Temperature O2 Saturation (90-100) % ABG pH (7.380-7.420) ABG pCO2 (38-42) mmHg ABG pO2 (61-120) mmHg ABG HCO3 (22-26) mmol/L ABG O2 Content (12.0-20.0) Vol % ABG Base Excess (-2-2) mmol/L ABG Methemoglobin (0-2) % Yair Test Hemoglobin (12.0-16.0) G/DL Carboxyhemoglobin (0-4) % O2 Delivery Device Liter Flow L/M Critical Value Sodium 132 L (136-145) meq/L Potassium 3.8 (3.5-5.1) meq/L Chloride 95 L (98-107) meq/L Carbon Dioxide 15.2 L (21.0-32.0) meq/L Anion Gap 22 H (5-15) meq/L BUN 30 H (7-18) mg/dL Creatinine 3.46 H (0.50-1.00) mg/dL Estimated GFR 14 L (>89) mL/min POC Glucose (68-110) mg/dl Random Glucose 29 L* (74-106) mg/dL Lactic Acid (0.4-2.0) mmol/L Calcium 8.8 (8.5-10.1) mg/dL Magnesium 1.8 (1.5-2.5) mg/dL Total Bilirubin 7.4 H (0.2-1.0) mg/dL AST 360 H (15-37) U/L ALT 182 H (10-53) U/L Alkaline Phosphatase 192 H (45-117) U/L Ammonia (11-32) mcmol/L Total Creatine Kinase 1003 H (26-192) U/L CK-MB (CK-2) 45.8 H (0.5-3.6) ng/mL CK-MB (CK-2) % 4.6 H* (0.0-4.0) % Troponin I Less than 0.02 L (0.02-0.05) ng/mL Total Protein 6.8 (6.4-8.2) g/dL Albumin 1.5 L (3.4-5.0) g/dL Lipase 155 (73-393) U/L Blood Type Antibody Screen Bld Prod Order Comment 06/10/18 06/10/18 06/10/18 Range/Units 13:50 13:50 14:13 WBC (4.0-11.0) th/mm3 RBC (4.00-5.30) mil/mm3 Hgb (11.6-15.3) gm/dL Hct (35.0-46.0) % MCV (80.0-100.0) fL MCH (27.0-34.0) pg MCHC (32.0-36.0) % RDW (11.6-17.2) % Plt Count (150-450) th/mm3 MPV (7.0-11.0) fL Prelim Diff (Auto) WBC Differential Seg Neuts % (Manual) (16-70) % Band Neuts % (Manual) (0-6) % Lymphocytes % (Manual) (9-44) % Monocytes % (Manual) (0-8) % Eosinophils % (Manual) (0-4) % Metamyelocytes % (Man) (0-1) % Myelocytes % (Man) (0-0) % Abs Neuts (Manual) (1.8-7.7) th/mm3 Nucleated RBCs/100 WBC (0-0) /100 WBC Differential Comment Toxic Granulation (None) Toxic Vacuolation (None) Platelet Estimate (Normal) Platelet Morphology (Normal) Polychromasia (0.0-1.9) % Basophilic Stippling (None) Tear Drop Cells (None) PT (9.8-11.6) sec INR Ratio APTT (23.4-31.7) sec Puncture Site Patient Temperature O2 Saturation (90-100) % ABG pH (7.380-7.420) ABG pCO2 (38-42) mmHg ABG pO2 (61-120) mmHg ABG HCO3 (22-26) mmol/L ABG O2 Content (12.0-20.0) Vol % ABG Base Excess (-2-2) mmol/L ABG Methemoglobin (0-2) % Yair Test Hemoglobin (12.0-16.0) G/DL Carboxyhemoglobin (0-4) % O2 Delivery Device Liter Flow L/M Critical Value Sodium (136-145) meq/L Potassium (3.5-5.1) meq/L Chloride (98-107) meq/L Carbon Dioxide (21.0-32.0) meq/L Anion Gap (5-15) meq/L BUN (7-18) mg/dL Creatinine (0.50-1.00) mg/dL Estimated GFR (>89) mL/min POC Glucose 33 L* (68-110) mg/dl Random Glucose (74-106) mg/dL Lactic Acid 12.1 H* (0.4-2.0) mmol/L Calcium (8.5-10.1) mg/dL Magnesium (1.5-2.5) mg/dL Total Bilirubin (0.2-1.0) mg/dL AST (15-37) U/L ALT (10-53) U/L Alkaline Phosphatase (45-117) U/L Ammonia 13 (11-32) mcmol/L Total Creatine Kinase (26-192) U/L CK-MB (CK-2) (0.5-3.6) ng/mL CK-MB (CK-2) % (0.0-4.0) % Troponin I (0.02-0.05) ng/mL Total Protein (6.4-8.2) g/dL Albumin (3.4-5.0) g/dL Lipase (73-393) U/L Blood Type Antibody Screen Bld Prod Order Comment 06/10/18 06/10/18 06/10/18 Range/Units 15:11 15:12 15:16 WBC (4.0-11.0) th/mm3 RBC (4.00-5.30) mil/mm3 Hgb (11.6-15.3) gm/dL Hct (35.0-46.0) % MCV (80.0-100.0) fL MCH (27.0-34.0) pg MCHC (32.0-36.0) % RDW (11.6-17.2) % Plt Count (150-450) th/mm3 MPV (7.0-11.0) fL Prelim Diff (Auto) WBC Differential Seg Neuts % (Manual) (16-70) % Band Neuts % (Manual) (0-6) % Lymphocytes % (Manual) (9-44) % Monocytes % (Manual) (0-8) % Eosinophils % (Manual) (0-4) % Metamyelocytes % (Man) (0-1) % Myelocytes % (Man) (0-0) % Abs Neuts (Manual) (1.8-7.7) th/mm3 Nucleated RBCs/100 WBC (0-0) /100 WBC Differential Comment Toxic Granulation (None) Toxic Vacuolation (None) Platelet Estimate (Normal) Platelet Morphology (Normal) Polychromasia (0.0-1.9) % Basophilic Stippling (None) Tear Drop Cells (None) PT (9.8-11.6) sec INR Ratio APTT (23.4-31.7) sec Puncture Site Patient Temperature O2 Saturation (90-100) % ABG pH (7.380-7.420) ABG pCO2 (38-42) mmHg ABG pO2 (61-120) mmHg ABG HCO3 (22-26) mmol/L ABG O2 Content (12.0-20.0) Vol % ABG Base Excess (-2-2) mmol/L ABG Methemoglobin (0-2) % Yair Test Hemoglobin (12.0-16.0) G/DL Carboxyhemoglobin (0-4) % O2 Delivery Device Liter Flow L/M Critical Value Sodium (136-145) meq/L Potassium (3.5-5.1) meq/L Chloride (98-107) meq/L Carbon Dioxide (21.0-32.0) meq/L Anion Gap (5-15) meq/L BUN (7-18) mg/dL Creatinine (0.50-1.00) mg/dL Estimated GFR (>89) mL/min POC Glucose 83 (68-110) mg/dl Random Glucose (74-106) mg/dL Lactic Acid (0.4-2.0) mmol/L Calcium (8.5-10.1) mg/dL Magnesium (1.5-2.5) mg/dL Total Bilirubin (0.2-1.0) mg/dL AST (15-37) U/L ALT (10-53) U/L Alkaline Phosphatase (45-117) U/L Ammonia (11-32) mcmol/L Total Creatine Kinase (26-192) U/L CK-MB (CK-2) (0.5-3.6) ng/mL CK-MB (CK-2) % (0.0-4.0) % Troponin I (0.02-0.05) ng/mL Total Protein (6.4-8.2) g/dL Albumin (3.4-5.0) g/dL Lipase (73-393) U/L Blood Type A Positive Antibody Screen Negative Bld Prod Order Comment 06/10/18 06/10/18 06/10/18 Range/Units 16:21 16:30 17:39 WBC (4.0-11.0) th/mm3 RBC (4.00-5.30) mil/mm3 Hgb (11.6-15.3) gm/dL Hct (35.0-46.0) % MCV (80.0-100.0) fL MCH (27.0-34.0) pg MCHC (32.0-36.0) % RDW (11.6-17.2) % Plt Count (150-450) th/mm3 MPV (7.0-11.0) fL Prelim Diff (Auto) WBC Differential Seg Neuts % (Manual) (16-70) % Band Neuts % (Manual) (0-6) % Lymphocytes % (Manual) (9-44) % Monocytes % (Manual) (0-8) % Eosinophils % (Manual) (0-4) % Metamyelocytes % (Man) (0-1) % Myelocytes % (Man) (0-0) % Abs Neuts (Manual) (1.8-7.7) th/mm3 Nucleated RBCs/100 WBC (0-0) /100 WBC Differential Comment Toxic Granulation (None) Toxic Vacuolation (None) Platelet Estimate (Normal) Platelet Morphology (Normal) Polychromasia (0.0-1.9) % Basophilic Stippling (None) Tear Drop Cells (None) PT (9.8-11.6) sec INR Ratio APTT (23.4-31.7) sec Puncture Site Right radial Patient Temperature 98.6 O2 Saturation 89 L* (90-100) % ABG pH 7.07 L* (7.380-7.420) ABG pCO2 40 (38-42) mmHg ABG pO2 86 (61-120) mmHg ABG HCO3 11 L* (22-26) mmol/L ABG O2 Content 13.6 (12.0-20.0) Vol % ABG Base Excess -17.0 L (-2-2) mmol/L ABG Methemoglobin 0.7 (0-2) % Yair Test Present Hemoglobin 10.8 L (12.0-16.0) G/DL Carboxyhemoglobin 1.2 (0-4) % O2 Delivery Device Nasal cannula Liter Flow 5.00 L/M Critical Value Yes Sodium (136-145) meq/L Potassium (3.5-5.1) meq/L Chloride (98-107) meq/L Carbon Dioxide (21.0-32.0) meq/L Anion Gap (5-15) meq/L BUN (7-18) mg/dL Creatinine (0.50-1.00) mg/dL Estimated GFR (>89) mL/min POC Glucose 65 L 140 H (68-110) mg/dl Random Glucose (74-106) mg/dL Lactic Acid (0.4-2.0) mmol/L Calcium (8.5-10.1) mg/dL Magnesium (1.5-2.5) mg/dL Total Bilirubin (0.2-1.0) mg/dL AST (15-37) U/L ALT (10-53) U/L Alkaline Phosphatase (45-117) U/L Ammonia (11-32) mcmol/L Total Creatine Kinase (26-192) U/L CK-MB (CK-2) (0.5-3.6) ng/mL CK-MB (CK-2) % (0.0-4.0) % Troponin I (0.02-0.05) ng/mL Total Protein (6.4-8.2) g/dL Albumin (3.4-5.0) g/dL Lipase (73-393) U/L Blood Type Antibody Screen Bld Prod Order Comment Imaging Data Attestation: I personally reviewed and interpreted this imaging study as follows : Radiologist's impression: Chest X-Ray 06/10/18 13:24 CONCLUSION: The lungs are clear. Abdomen/Pelvis CT 06/10/18 13:25 CONCLUSION: 1. Ascites. 2. Abnormal bowel wall thickening involving the transverse and descending colon characteristic of colitis. 3. Bilateral pulmonary nodules are seen. Head CT 06/10/18 13:25 CONCLUSION: 1. No acute intracranial abnormality. 2. Fluid in both mastoid air cells which can be seen with mastoiditis. . Abdomen Ultrasound 06/10/18 14:25 CONCLUSION: Only trace free fluid in the right lower quadrant. Not enough fluid is present for safe paracentesis. ECG Data EKG Prior to Arrival: No Attestation: I personally reviewed and interpreted this ECG as follows: Interpretation: EKG reveals normal sinus rhythm with a rate of 91. No ischemic changes noted. No significant ST elevations or depressions noted. No ectopy noted. Discharge Plan Discharge Disposition Patient Disposition: ED Admit(ED Internal Use Only) Discharge Order Discharge Orders: ED Use Only Admit Order (Routine); Ordered 06/10/18 Ordered By: Ernie Larkin Discharge Details Diagnosis: Altered mental status, Hypoglycemia, Hyponatremia, Sepsis, SHIRLEY (acute kidney injury), Acidosis, lactic, Temporary low platelet count, Coagulopathy, Cirrhosis Physicians Team ED Provider: Trav Cooper ED Midlevel Provider: Ernie Larkin Primary Care Provider: Primary Care Bianca Caceres Attending Provider: Renate Raphael Other Providers: Zoë Rashid ; Sabrina Casey Status ED Status: Admitted Patient
--- NOTE | 2018-06-10 14:26 | ED ---
HPI General Chief Complaint: Altered Mental Status Stated Complaint: Medical Time Seen by Provider: 06/10/18 13:19 Source: patient Mode of arrival: EMS Limitations: no limitations History of Present Illness MD complaint: Reports altered mental status and confusion Onset (ago): unknown Related Data Allergies Allergy/AdvReac Type Severity Reaction Status Date / Time *MDRO Multi-Drug Resistant AdvReac Unknown Uncoded 01/24/17 10:10 Organism PMF Medical History Medical History Alcohol abuse (Acute) COPD (chronic obstructive pulmonary disease) (Acute) Hepatitis C (Acute) Social History Social History Recent Travel in [facility] within the Last 8 Weeks: No Recent Out of Country Travel within the Last 8 Weeks: No Course Initial Documented Vital Signs Temperature 96.3 F L 06/10/18 13:57 Pulse Rate 99 H 06/10/18 13:57 Respiratory Rate 20 06/10/18 13:57 Blood Pressure 129/71 06/10/18 13:57 Pulse Oximetry 95 06/10/18 13:57 Last Documented Vital Signs Temperature 96.3 F L 06/10/18 13:57 Pulse Rate 99 H 06/10/18 13:57 Respiratory Rate 20 06/10/18 13:57 Blood Pressure 129/71 06/10/18 13:57 Pulse Oximetry 95 06/10/18 13:57 Medical Decision Making Lab Data Lab Results 06/10/18 Range/Units 14:13 POC Glucose 33 L* (68-110) mg/dl Imaging Data Radiologist's impression: Chest X-Ray 06/10/18 13:24 CONCLUSION: The lungs are clear. Discharge Plan Physicians Team ED Provider: Trav Cooper ED Midlevel Provider: Ernie Larkin Status ED Status: With Doctor
[2018-06-10 14:42] LABS: Hematocrit 38.8 % (35.0-46.0); Hemoglobin 12.7 gm/dL (11.6-15.3); Mean Corpuscular HGB Conc 32.8 % (32.0-36.0); Mean Corpuscular Hemoglobin 39.1 pg (27.0-34.0); Mean Corpuscular Volume 119.3 fL (80.0-100.0); Mean Platelet Volume 9.1 fL (7.0-11.0); Red Blood Count 3.26 mil/mm3 (4.00-5.30); Red Cell Distribution Width 17.9 % (11.6-17.2); White Blood Count 0.6 th/mm3 (4.0-11.0)
[2018-06-10 14:51] LABS: INR 3.4 Ratio; Prothrombin Time 34.6 sec (9.8-11.6)
[2018-06-10 15:00] LABS: Platelet Count 9 th/mm3 (150-450)
[2018-06-10] MEDS ORDERED: Vancomycin Inj 1,000 MG in Sodium Chlor 0.9% Inj 250 ML IV.SIG ONE (15:10)
[2018-06-10] MEDS ORDERED: Piperacil/Tazo 4.5 GM Premix 4.5 GM/100 ML BAG IV.SIG SCH (15:15)
[2018-06-10 15:28] LABS: Alanine Aminotransferase 182 U/L (10-53); Albumin 1.5 g/dL (3.4-5.0); Alkaline Phosphatase 192 U/L (45-117); Anion Gap 22 meq/L (5-15); Aspartate Aminotransferase 360 U/L (15-37); Blood Urea Nitrogen 30 mg/dL (7-18); Calcium 8.8 mg/dL (8.5-10.1); Carbon Dioxide 15.2 meq/L (21.0-32.0); Chloride 95 meq/L (98-107); Creatine Kinase 1003 U/L (26-192); Glomerular Filtration Rate 14 mL/min (>89); Lipase 155 U/L (73-393); Magnesium 1.8 mg/dL (1.5-2.5); Potassium 3.8 meq/L (3.5-5.1); Sodium 132 meq/L (136-145); Total Protein 6.8 g/dL (6.4-8.2)
[2018-06-10 15:31] LABS: Glucose,Random 29 mg/dL (74-106)
--- NOTE | 2018-06-10 15:42 | US ---
EXAM DATE: 06/10/2018 3:25 PM EST AGE/SEX: 58 years / Female INDICATIONS: Ascites CLINICAL DATA: This is the patient's initial encounter. Patient reports that signs and symptoms have been present for 1 day and indicates a pain score of 5/10. MEDICAL/SURGICAL HISTORY: . Alcohol abuse. COPD. Hepatitis C. None. COMPARISON: [facility] [place], CT ABDOMEN & PELVIS W CONTRAST, 05/04/2017. . FINDINGS: There is only trace free fluid in the right lower quadrant. CONCLUSION: Only trace free fluid in the right lower quadrant. Not enough fluid is present for safe paracentesis. Electronically signed by: Eddie Maurer MD Board Certified Radiologist 06/10/2018 3:41 PM EST
[2018-06-10 15:56] LABS: Creatine Kinase MB 45.8 ng/mL (0.5-3.6)
[2018-06-10] MEDS ORDERED: Sodium Chlor 0.9% Inj 250 ML IV.SIG SCH (16:00)
[2018-06-10] MEDS ORDERED: Bisacodyl 10 MG Supp RECTAL PRN (16:01)
[2018-06-10] MEDS ORDERED: Vancomycin Consult Pharmacy OTHER PRN (16:09)
[2018-06-10 16:11] LABS: CKMB Percent 4.6 % (0.0-4.0)
[2018-06-10] MEDS ORDERED: Piperacil/Tazo 3.375 GM Premix 3.375 GM/50 ML PIGGYBACK IV.SIG SCH (16:15)
[2018-06-10] MEDS: Hydrocortisone Sod Succinate 100 MG Vial IV.PUSH SCH ×2 (16:27→21:34)
[2018-06-10] MEDS ORDERED: Folic Acid 1 MG Tablet PO SCH (16:30)
[2018-06-10 16:34] LABS: ABG PCO2 40 mmHg (38-42); ABG PO2 86 mmHg (61-120)
[2018-06-10] MEDS: Dextrose 50% in Water 50 ML Vial IV.PUSH PRN ×2 (16:47→20:55)
[2018-06-10] MEDS: Sod Chloride 0.9% Inj 1,000 ML IV.SIG SCH ×2 (16:49→20:54)
[2018-06-10] MEDS ORDERED: Pantoprazole Inj 40 MG Vial IV.PUSH SCH (17:00)
[2018-06-10] MEDS ORDERED: Phytonadione Inj 10 MG/ML Vial SQ SCH (17:00)
[2018-06-10] MEDS: Sodium Bicarbonate 8.4% Inj 150 MEQ in Dextrose 5% in Water Inj 850 ML IV.CONT SCH ×2 (17:05)
[2018-06-10 17:09] LABS: Eosinophils 1 % (0-4); Lymphocytes 41 % (9-44); Metamyelocytes 19 % (0-1); Monocytes 3 % (0-8); Myelocytes 8 % (0-0); Tallied Nucleated RBC 5 (0-0)
[2018-06-10 17:15] LABS: Platelet Estimate Rare (Normal); Platelet Morphology Normal (Normal); Tear Drop Cells 1+
[2018-06-10 17:16] LABS: Polychromasia 2.5 % (0.0-1.9); Toxic Granulation 2+; Toxic Vacuolation Present
--- NOTE | 2018-06-10 17:22 | CT ---
EXAM DATE: 06/10/2018 5:19 PM EST AGE/SEX: 58 years / Female INDICATIONS: Altered mental status. CLINICAL DATA: This is the patient's initial encounter. Patient reports that signs and symptoms have been present for 1 day and indicates a pain score of 0/10. MEDICAL/SURGICAL HISTORY: Chronic obstructive pulmonary disease. Hepatitis C. None. RADIATION DOSE: 46.73 CTDI (mGy) ;Tabletop exam COMPARISON: No prior exams available for comparison. TECHNIQUE: CT of the head without contrast. Using automated exposure control and adjustment of the mA and/or kV according to patient size, radiation dose was kept as low as reasonably achievable to ob tain optimal diagnostic quality images. DICOM format image data is available electronically for revi ew and comparison. FINDINGS: Cerebrum: The ventricles are normal for age. No evidence of midline shift, mass lesion, hemorrhage or acute infarction. No extraaxial fluid collections are seen. Posterior Fossa: The cerebellum and brainstem are intact. The 4th ventricle is midline. The cerebe llopontine angle is unremarkable. Extracranial: The visualized portion of the orbits is intact. Opacification of both mastoid air cell s. Skull: The calvaria is intact. No evidence of skull fracture. CONCLUSION: 1. No acute intracranial abnormality. 2. Fluid in both mastoid air cells which can be seen with mastoiditis. . Electronically signed by: Abiodun Abernathy MD Board Certified Radiologist 06/10/2018 5:21 PM EST
--- NOTE | 2018-06-10 17:34 | CT ---
EXAM DATE: 06/10/2018 5:28 PM EST AGE/SEX: 58 years / Female INDICATIONS: Abdominal pain and distention. CLINICAL DATA: This is the patient's initial encounter. Patient reports that signs and symptoms have been present for 1 day and indicates a pain score of 7/10. MEDICAL/SURGICAL HISTORY: Chronic obstructive pulmonary disease. Hepatitis C. None. RADIATION DOSE: 22.18 CTDI (mGy) [place] [facility] [place]. . TECHNIQUE: Multiple contiguous axial images were obtained through the abdomen. Images were obtained using multiple row detector helical technique. Using automated exposure control and adjustment of the mA and/or kV according to patient size, radiation dose was kept as low as reasonably achievable to o btain optimal diagnostic quality images. DICOM format image data is available electronically for rev iew and comparison. FINDINGS: There are numerous bilateral pulmonary nodules incompletely evaluated on this study. There is patchy atelectasis, and pleural thickening/ intermediate density effusions at the lung bases. There is a mod erate amount of free fluid in the abdomen and pelvis. There is diverticulosis without evidence of div erticulitis. There is circumferential bowel wall thickening at the proximal transverse colon, hepatic flexure and a sending colon with pericolonic inflammatory stranding. This is characteristic of colit is. There is mild distention of the stomach. Pancreas, adrenals, spleen, kidneys are unremarkable. Th ere is no free air. The osseous structures demonstrate degenerative changes of the spine. CONCLUSION: 1. Ascites. 2. Abnormal bowel wall thickening involving the transverse and descending colon characteristic of co litis. 3. Bilateral pulmonary nodules are seen. Electronically signed by: Justin Norman MD Board Certified Radiologist 06/10/2018 5:32 PM EST
--- NOTE | 2018-06-10 17:53 | MH ---
cc: Renate Raphael MD DATE OF ADMISSION: 06/10/2018 HISTORY OF PRESENT ILLNESS: The patient is a 58-year-old female with past medical history of hepatitis C, COPD, ETOH abuse, who presented to [facility] ED via [facility] for altered mental status. According to her , the patient has been feeling bad for the past 3-4 days. She has not been eating or drinking and had difficulty sleeping. Also, she had emesis for 2 days, associated with abdominal cramps that progressively worsened. The patient also reported some shortness of breath and edema of lower extremities. She denies any chest pain, orthopnea, PND. Also no history of any cough or constitutional symptoms. On arrival, she had a temperature of 96.3 rectally. Due to worsening confusion, [facility] was notified. She was hypoglycemic with a sugar in the 40s and hypotensive with a blood pressure in the 70s, initially. The patient drinks and smokes on a daily basis. Her laboratory data is significant for severe lactic acidosis with a lactic acid level of 12.1, acute renal failure with metabolic acidosis. Creatinine level measured at 3.46 with anion gap of 22, and hypoglycemic on a BMP with a blood sugar of 29. Also, she was found leukopenic and thrombocytopenic. Her white blood cell count noted to be 0.6 and a platelet count of 9. In addition, the patient was coagulopathic with an INR of 3.4. She had an ultrasound of the abdomen in the ED, which showed only trace fluid in the right lower quadrant, not enough fluid present for paracentesis. Chest x-ray in the ER showed clear lungs. The patient is on 4 liter oxygen. I requested an ABG which showed severe metabolic acidosis with a pH of 7.07, CO2 40, bicarbonate of 11. The patient was given 2 amps of sodium bicarbonate and received approximately 1.5 liters of crystalloids. Her current blood pressure is 129/71 with a pulse of 99. Her mentation is somewhat better per nursing staff. She is in the process of receiving 2 additional amps of sodium bicarbonate and 2 liters of crystalloids. Also, a CT scan of the brain and CT abdomen and pelvis are pending. Her ammonia level is noted to be 13. PAST MEDICAL HISTORY: Significant for hepatitis C, COPD. PAST SURGICAL HISTORY: Unremarkable. ALLERGIES: NO KNOWN DRUG ALLERGIES. SOCIAL HISTORY: Drinks beer daily, 3 cans, and smokes 1 pack of cigarettes, and has been a smoker for 40 years. Denies any drug use. MEDICATIONS AT HOME: Include: 1. Neurontin. 2. Abilify. 3. Effexor. REVIEW OF SYSTEMS: As per HPI. The rest of review of systems limited as the patient is a poor historian. PHYSICAL EXAMINATION: GENERAL: A 58-year-old female lying in bed, in no acute respiratory distress with altered mental status; however, she responds to questions appropriately. VITAL SIGNS: Temperature 96.3 rectally, pulse of 99-103, blood pressure 129/71, saturation 97% on 4 liter oxygen. HEENT: Atraumatic, normocephalic. Pupils are equal, round, reactive to light and accommodation. Extraocular muscles intact. Conjunctivae pink. Icteric sclerae noted. NECK: Supple. No JVD, adenopathy or thyromegaly. Trachea in the midline. CARDIOVASCULAR: Regular rate and rhythm. Normal S1, S2. No murmurs, rubs or gallops noted. PULMONARY: Bilateral equal air entry. No rales or wheezing. ABDOMEN: Soft, mild tenderness upon palpation. Mild distention. Positive bowel sounds. EXTREMITIES: No cyanosis or clubbing. Trace edema. NEUROLOGIC: No focal sensory deficit, confused; however, she responds to answer questions appropriately. LABORATORY DATA: Sodium 132, potassium 3.8, chloride 95, CO2 15, BUN 30, creatinine 3.46, glucose of 29, lactic acid 12.1, total bilirubin 7.4, AST 360, ALT 182, alkaline phosphatase 192. Total CK 1003. Troponin less than 0.02, ammonia level 13. WBC 0.6, hemoglobin 12.7, hematocrit 38, and platelet count of 9. ABG showed a pH of 7.07, CO2 40, bicarbonate of 11. INR 3.4. PT 34.6, PTT 43. RADIOGRAPHIC STUDIES: Chest x-ray showed no acute disease. Ultrasound of the abdomen showed trace free fluid in the right lower quadrant. IMPRESSION: 1. Respiratory insufficiency. 2. Altered mental status. 3. Acute renal failure. 4. Anion gap metabolic acidosis. 5. Lactic acidemia. 6. Hypoglycemia, likely secondary to end-stage liver disease. 7. Coagulopathy. 8. Elevated liver enzymes and hyperbilirubinemia. 9. History of hepatitis C. 10. Leukopenia and severe thrombocytopenia. 11. ETOH. RECOMMENDATIONS: 1. Monitor neuro status closely and avoid any sedatives. Ammonia level measured at 13. The patient is scheduled for a CT brain without contrast. We will check urine drug screen aspirin level, Tylenol level, and lithium level, questionable history of bipolar disorder. 2. Place on thiamine, multivitamins and folic acid. 3. Continue oxygen and maintain saturations above 92%. 4. Bronchodilators in the form of DuoNeb every 4 hours plus every 2 hours p.r.n. for shortness of breath. 5. Chest x-ray in the emergency department showed no acute disease. If there is any worsening in respiratory status or neuro status, we will proceed with intubation and mechanical ventilation. We will repeat arterial blood gases to follow up on resolution of metabolic acidosis. 6. Monitor heart rate and blood pressure closely and maintain MAP greater than 65 mmHg. We will give an additional 2 liters of crystalloids; serial lactic acid monitoring until clear. 7. Place on D5W with 3 amps of bicarbonate at 150 mL an hour. The patient was given 2 amps of sodium bicarbonate and we will give an additional 2 amps of bicarbonate now. 8. Monitor renal function, intake and output, and avoid nephrotoxins. IV fluids as stated above. Monitor CKs. 9. Keep n.p.o. for now and place on Protonix 40 mg daily. Consult GI service for hyperbilirubinemia with elevated liver function tests, likely secondary to hepatic failure. She is scheduled for CT abdomen and pelvis without contrast. Ultrasound of the abdomen in the emergency department showed trace ascites. 10. Monitor liver function tests and will check hepatitis profile. 11. Continue with broad-spectrum antibiotics. She was given vancomycin and Zosyn, adjust doses per renal function. Follow up on blood cultures. 12. Place on a sliding scale insulin with Accu-Cheks every 2 hour in addition to hydrocortisone 100 mg IV every 8 hours, given hypoglycemic episodes. 13. Monitor CBC and coagulopathy. We will place on vitamin K 5 mg subcutaneously daily for 3 days. Monitor for signs of bleeding. Will transfuse 2 units of platelet phoresis. 14. Gastrointestinal prophylaxis with Protonix 40 mg daily and deep venous thrombosis prophylaxis with sequential compression devices. The patient is critically ill with multiple organ injury. CRITICAL CARE TIME: 60 minutes, excluding procedures. MD Anne Mcgee , 04:57 PM , 05:17 PM
[2018-06-10] MEDS ORDERED: Norepinephrine Inj 4 MG/4 ML Ampul ONE (17:58)
[2018-06-10] MEDS ORDERED: Vancomycin Inj 1,500 MG in Sodium Chlor 0.9% Inj 500 ML IV.SIG ONE (18:00)
--- NOTE | 2018-06-10 18:50 | XR ---
EXAM DATE: 06/10/2018 6:36 PM EST AGE/SEX: 58 years / Female INDICATIONS: Post tube placement. CLINICAL DATA: This is the patient's initial encounter. Patient reports that signs and symptoms have been present for 1 day and indicates a pain score of Nonresponsive. MEDICAL/SURGICAL HISTORY: Hypertension. None. COMPARISON: C, CHEST 1V SINGLE AP, 06/10/2018. . FINDINGS: Endotracheal tube in good position. NG enters stomach. There is a diffuse mild airspace disease in th e lungs, especially in the right perihilar region. No significant effusion. No pneumothorax. CONCLUSION: Endotracheal tube and nasogastric tube in good position. Mild airspace disease in the lungs. Electronically signed by: Crescencio Gutierrez MD Board Certified Radiologist 06/10/2018 6:49 PM EST
--- NOTE | 2018-06-10 18:59 | ECG ---
Date Performed: 06/10/2018 Time Performed: 14:21:23 PTAGE: 58 years EKG: Sinus rhythm MINIMAL VOLTAGE CRITERIA FOR LVH, CONSIDER NORMAL VARIANT BORDERLINE ECG No significant change from prior electrocardiogram. PREVIOUS TRACING : 11/05/2016 09.00 DOCTOR: Fadi Alvarez Interpretating Date/Time 06/10/2018 18:56:49
[2018-06-10] MEDS ORDERED: Vasopressin Inj 40 UNIT in Dextrose 5% in Water Inj 98 ML IV.CONT PRN ×2 (20:07)
[2018-06-10 20:32] LABS: ABG Base Excess -18.5 mmol/L (-2-2); ABG PCO2 38 mmHg (38-42); ABG PO2 205 mmHG (61-120)
[2018-06-10 20:36] LABS: Baso % (Auto) 0.1 % (0.0-2.0); Eos % (Auto) 2.8 % (0.0-4.0); Hematocrit 29.2 % (35.0-46.0); Hemoglobin 9.3 gm/dL (11.6-15.3); Lymph # (Auto) 0.3 th/mm3 (1.0-4.8); Lymph % (Auto) 33.2 % (9.0-44.0); Mean Corpuscular HGB Conc 31.8 % (32.0-36.0); Mean Corpuscular Hemoglobin 38.7 pg (27.0-34.0); Mean Corpuscular Volume 121.9 fL (80.0-100.0); Mean Platelet Volume 8.1 fL (7.0-11.0); Neut # (Auto) 0.6 th/mm3 (1.8-7.7); Neut % (Auto) 62.9 % (16.0-70.0); Platelet Count 33 th/mm3 (150-450); Red Blood Count 2.39 mil/mm3 (4.00-5.30)
[2018-06-10] MEDS: Insulin NovoLOG Aspart Correctional Sugar Inj SQ SCH ×3 (20:56→22:15)
[2018-06-10 21:11] LABS: Albumin 1.2 g/dL (3.4-5.0); Calcium 7.4 mg/dL (8.5-10.1); Carbon Dioxide 15.3 meq/L (21.0-32.0); Potassium 4.2 meq/L (3.5-5.1)
[2018-06-10 21:12] LABS: Prothrombin Time 26.6 sec (9.8-11.6)
[2018-06-10 21:13] LABS: INR 2.6 Ratio
--- NOTE | 2018-06-10 21:54 | MB ---
cc: Sabrina Casey MD DATE: 06/10/2018 REASON FOR CONSULTATION: Elevated BUN and creatinine and severe metabolic acidosis for evaluation. HISTORY OF PRESENT ILLNESS: This is a 58-year-old female who was brought to the emergency department by [facility] because of altered mental status. When I saw the patient, she was already intubated. I was called to see the patient because of elevated BUN and creatinine and severe metabolic acidosis. The patient was brought to the hospital because of altered mental status and she was found confused by [facility]. She has a strong history of some psychiatric illness, COPD, hepatitis C and alcoholism, according to the medical records. The patient has been drinking alcohol and, according to the record, she drank last time yesterday, and she was found confused. She also has swelling of her abdomen and has trouble breathing. The patient was initially found by [facility] hypotensive as well and hypoglycemic with a sugar in 30s and a systolic blood pressure in the 70s. The patient was given D50, and her blood pressure came up to 90 systolic with no treatment. The patient developed cardiac arrest and bradycardia with hypotension in the emergency department. She was intubated and was seen by the examiner of currency. I saw her after she was intubated and she was on pressors with low blood pressure. PAST MEDICAL HISTORY: COPD, hepatitis C, history of some psychiatric illness, history of alcoholism. PAST SURGICAL HISTORY: Not available. SOCIAL HISTORY: Positive for alcoholism and active smoking. FAMILY HISTORY: Not available. ALLERGIES: THERE ARE NO KNOWN DRUG ALLERGIES. MEDICATIONS: 1. DuoNeb nebulizer. 2. Dulcolax suppositories. 3. Folic acid 1 mg once a day. 4. Solu-Cortef 100 mg every 8 hours. 5. Insulin as per sliding scale. 6. Theragran 1 tablet daily. 7. Protonix 40 mg daily. 8. Vancomycin, consult the pharmacy. 9. Vitamin K 5 mg daily. 10. Zosyn 3.375 grams 11. Senokot 17.2 mg every 12 hours. 12. Thiamine 100 mg once a day. PHYSICAL EXAMINATION: GENERAL: The patient is intubated and sedated. VITAL SIGNS: Blood pressure is on the lower side, with the last reading of 128/81 and this is on pressors. Temperature is 97.6, oxygen saturation is 100%. HEENT: Pupils are mid constricted. Nonicteric sclerae. Conjunctivae are pale. NECK: Supple. JVD is slightly elevated. LUNGS: The patient has bilateral decreased air entry with scattered wheezing. HEART: S1, S2. Regular rate and rhythm. ABDOMEN: . No definite tenderness. Bowel sounds positive. EXTREMITIES: She has 1+ leg edema. LABORATORY DATA: WBC count is 0.6, hemoglobin is 12.7, platelet count of 9, neutrophils, 18%. INR is 3.4. Arterial blood gas showing pH of 7.0, pCO2 of 40, bicarbonate of 11 with base excess of -17. Sodium 132, potassium 3.8, chloride 95, bicarbonate 15.2, BUN 30, creatinine 3.46. Lactic acid is 12.1, calcium is 8.8, magnesium 1.8. AST is 360, ALT is 182, creatinine kinase 1003, total protein 6.8 with albumin of 1.5 and a lipase of 155. IMAGING STUDIES: The patient had a chest x-ray done, which shows ET tube in place with mild airspace disease of the lung. Also, had ultrasound abdomen done, which shows only trace amount of fluid in the right lower quadrant, not enough for paracentesis. CT scan of the brain was done, which shows no acute intracranial abnormality, fluid in both mastoid air cells. CT scan of the abdomen and pelvis was done without IV contrast and shows ascites, abdominal wall thickening, and pulmonary nodules are seen. The kidneys are reported as unremarkable. ASSESSMENT AND PLAN: 1. Post-cardiac arrest. 2. Hypotension and shock status. 3. Severe metabolic acidosis. 4. Respiratory failure. 5. Leukopenia and severe thrombocytopenia. 6. Elevated liver enzymes. 7. Coagulopathy. 8. History of alcoholism. The patient is post-cardiac arrest and now she is on a vent and on pressors. Her bicarbonate is still low. The patient is now intubated. We will follow the repeat blood gas and try to correct the metabolic acidosis by giving IV sodium bicarbonate. If her condition does not improve, she possibly will need renal replacement therapy with the possibility of continuous renal replacement therapy. Continue antibiotics. Follow the culture results. Thank you for the consultation. I will follow. MD MICHELLE Rodriguez/elicia/do , 08:02 PM , 08:14 PM
[2018-06-10 22:05] LABS: Hepatitis A IgM Antibody Nonreactive (Nonreactive); Hepatitits B Surface Antigen Nonreactive (Nonreactive)
[2018-06-10 22:31] LABS: Eosinophils 3 % (0-4); Lymphocytes 30 % (9-44); Metamyelocytes 22 % (0-1); Monocytes 4 % (0-8); Myelocytes 4 % (0-0); Tallied Nucleated RBC 15 (0-0)
[2018-06-10 22:35] LABS: Polychromasia 2.4 % (0.0-1.9)
[2018-06-10 22:36] LABS: Tear Drop Cells 1+; Toxic Granulation 2+; Toxic Vacuolation Present
[2018-06-10] MEDS: Piperacil/Tazo 3.375 GM Premix 3.375 GM/50 ML PIGGYBACK IV.SIG SCH (23:01)
--- NOTE | 2018-06-10 23:26 | P.PNADD ---
Addendum to Inpatient Note Reason for Addendum: Additional Documentation Additional information: I was called to the bedside around 7 PM for this patient who is critically ill. In brief, she is a 58-year-old female who presents in multiorgan failure and shock. In the emergency department shortly after admission she coded and went into PEA arrest. ROSC was obtained. She is on Levophed. She does not have current central access. When I arrived at bedside, she was hypotensive with a mean arterial pressure 45 mmHg. She is significantly coagulopathic, however given her severe critical illness, central accesses imperative as well as arterial access. I placed right femoral arterial and central venous catheters, see separate procedure note for these details. Care was taken to minimize hematoma and bleeding risk and ultrasound guidance was used. In addition we added vasopressin and epinephrine infusions. Lactate continues to trend up and on recheck was 20. I gave 6 A of bicarb for persistent acidosis which was refractory to a bicarb infusion. Patient remains critically ill with ongoing resuscitation for refractory shock. On my evaluation, the patient is in extremis, mottled, poorly perfused extremities. She is lying in bed intubated and on mechanical ventilation. Equal chest rise. FiO2 is 80%. Tachycardic rate, regular rhythm. Appears sinus. Morbidly obese, abdomen is distended. Nontender. No guarding. Extremities are mottled. Cool. Poorly perfused. RASS -3. Not sedated. Obtunded. Withdraws to pain. Active problems: Acute metabolic encephalopathy Hepatic encephalopathy Hyperammonemia Refractory shock Lactic acidosisworsening Severe acute anion gap metabolic acidosis Shock liver Probable fulminant liver failure Severe hypoglycemia Plan: Add vasopressin Add epinephrine Goal map greater than 65 Trend lactates Continue aggressive volume resuscitation Continue antibiotics Continue every hour glucose checks with dextrose IV fluids Continue bicarb drip Versed 2 mg IV every hour as needed for agitation Wean FiO2 for goal SPO2 greater than 90% Trend coags, platelets Does not currently meet transfusion triggers at this time. Transfuse for worsening bleeding in setting of coagulopathy This patient remains critically ill with one or more organ systems which are or may become a threat to life. This addendum represents an additional 83 minutes in excess of any time previously documented in the care and management of this patient. This time is discontinuous, exclusive of procedures, and includes, but is not limited to, evaluation of the patient, review of the medical record, discussions with family, consultants, nursing staff, or respiratory therapy, and documentation in the medical record.
--- NOTE | 2018-06-10 23:28 | P.PCN ---
Date of procedure: 06/10/18 Procedure: Procedure: Arterial Line Placement Right femoral arterial line Diagnosis: Refractory shock Indications: Need for beat to beat hemodynamic monitoring Consent: Emergent Description of the Procedure: The right groin was prepped and draped sterilely. 1% lidocaine was used for local anesthesia. Direct real-time ultrasound guidance was used for this procedure. The vascular anatomy of the right groin was normal. Under direct real-time ultrasound visualization, the femoral artery was located and a needle was advanced into the artery. A 16 gauge, 20 cm catheter was advanced into the artery using a modified Seldinger technique. The catheter was sutured to the skin and a sterile dressing was applied. The catheter was connected to a pressure transducer and an arterial waveform was noted. There were no immediate complications noted. There was minimal EBL. I personally performed the procedure.
--- NOTE | 2018-06-10 23:29 | P.PCN ---
Date of procedure: 06/10/18 Procedure: Central Line Procedure Note Right femoral 7 [place] 20 cm triple-lumen catheter Diagnosis: Refractory shock Indications: Need for highly potent vasoactive substances Consent: Emergent Anesthesia: 1% lidocaine locally Description of the Procedure: The patient was placed in the supine position. The area was prepped and draped sterilely. A 19g needle was inserted under negative pressure aspiration and dark venous blood was obtained. A guidewire was inserted easily without resistance. A small incision was made using a #11 blade. Using a modified Seldinger technique, the dilator and 7 [place], 20 cm catheter were advanced over the guidewire without resistance. All ports were aspirated and flushed, and had brisk blood return. The line was secured at the skin using 2-0 silk interrupted sutures. Suture was used instead of a non- suture StatLock device due to the patient's obesity and inability for the non- suture StatLock device to adhere to the skin. A Biopatch and Transparent sterile dressing were applied. There were no immediate complications noted. There was minimal EBL. The patient tolerated the procedure well. Ultrasound Guidance: Ultrasound guidance was used to identify the right femoral vein. The vascular anatomy of the right groin was normal. The vessel was cannulated under direct, real-time ultrasound visualization. After placement of the guidewire, confirmation of the guidewire in the lumen of the vessel was made using ultrasound visualization, before dilation of the tract. I personally performed the procedure.
[2018-06-11] MEDS: Dextrose 50% in Water 50 ML Vial IV.PUSH PRN ×2 (00:11→02:10)
[2018-06-11] MEDS: Insulin NovoLOG Aspart Correctional Sugar Inj SQ SCH ×3 (00:12→06:51)
[2018-06-11 00:40] LABS: Bacteria,Urine Many /hpf; Bilirubin,Urine Small (Negative); Clarity,Urine Cloudy (Clear); Color,Urine Amber (Yellw/Straw); Glucose,Urine (UA) 50 mg/dL (Negative); Leukocyte Esterase,Urine Small (Negative); Mucus,Urine Many /lpf (Occasional); Nitrite,Urine Negative (Negative); Renal Epithelial Cells,Urine 46 /hpf; Specific Gravity,Urine 1.015 (1.002-1.035); Squamous Epithelial Cell,Urine 21 /hpf (0-5); Transitional Epi Cells,Urine 13 /hpf
[2018-06-11 00:43] LABS: Ictotest,Urine Positive (Negative)
[2018-06-11 01:40] LABS: Amphetamine Screen,Urine Neg (Neg); Barbiturate Screen,Urine Neg (Neg); Cannabinoid Screen,Urine Neg (Neg); Cocaine Screen,Urine Pos (Neg)
[2018-06-11 01:46] LABS: Opiate Screen,Urine Neg (Neg)
[2018-06-11] MEDS: Sodium Bicarbonate 8.4% Inj 150 MEQ in Dextrose 5% in Water Inj 850 ML IV.CONT SCH ×2 (02:08)
[2018-06-11 02:42] LABS: Hematocrit 23.3 % (35.0-46.0); Hemoglobin 7.3 gm/dL (11.6-15.3); Mean Corpuscular HGB Conc 31.4 % (32.0-36.0); Mean Corpuscular Hemoglobin 38.9 pg (27.0-34.0); Mean Corpuscular Volume 124.2 fL (80.0-100.0); Mean Platelet Volume 7.5 fL (7.0-11.0); Red Blood Count 1.88 mil/mm3 (4.00-5.30); Red Cell Distribution Width 17.9 % (11.6-17.2); White Blood Count 1.8 th/mm3 (4.0-11.0)
[2018-06-11] MEDS ORDERED: Dextrose 10% in Water Inj 1,000 ML IV.CONT SCH (02:45)
[2018-06-11 02:51] LABS: Platelet Count 10 th/mm3 (150-450)
[2018-06-11 02:52] LABS: INR 3.7 Ratio
[2018-06-11 03:30] LABS: Albumin 0.9 g/dL (3.4-5.0); Calcium 6.6 mg/dL (8.5-10.1); Carbon Dioxide 8.2 meq/L (21.0-32.0); Magnesium 2.5 mg/dL (1.5-2.5); Phosphorus 9.4 mg/dL (2.5-4.9); Potassium 5.1 meq/L (3.5-5.1); Total Protein 3.9 g/dL (6.4-8.2); Vancomycin,Random 36.6 Comment
[2018-06-11] MEDS ORDERED: Chlorhexidine Gluconate 2% 1 Pack (2 Cloths) TOPICAL PRN (04:00)
[2018-06-11] MEDS ORDERED: Chlorhexidine Gluconate 2% 1 Pack (2 Cloths) TOPICAL SCH (04:00)
[2018-06-11 04:25] VITALS: RESP 18
[2018-06-11 04:32] LABS: CKMB Percent 1.5 % (0.0-4.0); Creatine Kinase MB 52.4 ng/mL (0.5-3.6)
[2018-06-11 05:05] LABS: ABG Base Excess -23.9 mmol/L (-2-2); ABG PCO2 27 mmHg (38-42); ABG PO2 85 mmHG (61-120)
[2018-06-11 05:08] VITALS: BP 78/48; TEMP 98.5
[2018-06-11 05:21] LABS: Lymphocytes 30 % (9-44); Metamyelocytes 9 % (0-1); Monocytes 2 % (0-8); Myelocytes 1 % (0-0); Promyelocyte 2 % (0-0); Tallied Nucleated RBC 14 (0-0)
[2018-06-11 05:22] LABS: Platelet Estimate Rare (Normal)
[2018-06-11 05:31] LABS: Dohle Bodies Present; Pappenheimer Bodies Present; Platelet Morphology Normal (Normal); Toxic Granulation 1+; Toxic Vacuolation Present
[2018-06-11 05:33] LABS: Polychromasia 2.6 % (0.0-1.9)
--- NOTE | 2018-06-11 05:57 | P.PNADD ---
Addendum to Inpatient Note Reason for Addendum: Additional Documentation Additional information: Resident team responded to CODE BLUE. Corporate Counselor was managing code at the time of our arrival.
[2018-06-11] MEDS: Hydrocortisone Sod Succinate 100 MG Vial IV.PUSH SCH (06:52)
[2018-06-11] MEDS: Piperacil/Tazo 3.375 GM Premix 3.375 GM/50 ML PIGGYBACK IV.SIG SCH (06:53)
[2018-06-11 07:02] VITALS: O2SAT 100
[2018-06-11 07:22] VITALS: PULSE 56
--- NOTE | 2018-06-11 10:58 | MD ---
cc: Renate Raphael MD DATE OF DISCHARGE: 06/11/2018 EXPIRATION DATE: 06/11/2018. HOSPITAL COURSE: The patient is a 58-year-old female with past medical history of hepatitis C, COPD, alcohol abuse, who presented to [facility] ED for altered mental status, intractable nausea, vomiting, abdominal cramps and decreased p.o. intake. When [facility] arrived, she was found hypoglycemic with blood sugar in the 40's and hypotensive initially, with systolic blood pressure in the 70's. On arrival to the ED, her workup revealed severe lactic acidosis with a lactic acid level of 12, acute renal failure with metabolic acidosis. Also, she was in acute fulminant hepatic failure, leukopenic, and thrombocytopenic. She had a white blood cell count of 0.6 and a platelet count of 9. The patient was also coagulopathic with an INR of 3.4. Ultrasound of the abdomen in the ED showed trace fluid in the right lower quadrant and a chest x-ray showed no acute disease. The patient was initially on 4 liter oxygen and her initial ABG showed severe metabolic acidosis with a pH of 7.07, CO2 40, bicarbonate of 11. She was given multiple amps of bicarbonate administration and crystalloids. In the ED, the patient became bradycardic, went into a PEA arrest. ACLS protocol was initiated, and she was subsequently intubated by the ED physician. A CT scan of the brain showed no acute intracranial abnormalities. The patient also had a CT abdomen and pelvis, which showed some ascites, bowel wall thickening involving the transverse and descending colon characteristic of colitis, and bilateral pulmonary nodules. The patient was given a platelet transfusion and vitamin K and placed on broad spectrum antibiotics. She continued to decompensate overnight, requiring multiple pressor support and multiple bicarbonate administrations, in addition to being on a bicarbonate drip. She had a severe refractory acidosis and an ABG at 4:53 in the morning showed a pH of 6.95, bicarbonate of 6, CO2 of 27. Her lactic acid continued to climb and increased to 31.4 at 2:30 in the morning. Her urine drug screen was positive for cocaine and a hepatitis profile showed a reactive hep C IgG antibody. She had another cardiac arrest in the ICU and patient was made NO CODE/DNR by Dr. Good. She went into asystole at approximately 6:27 this morning and the patient was pronounced. Her was present at bedside. MD GREG Mcgee/evelyn/gosia , 07:52 AM , 08:01 AM
== END 2018-06-11 06:25 | disposition expired | DRG 441 ==
LOC: NEPE 13:15 → NEDA 16:13 → HIMC 18:40
PROVIDERS: ADMIT Internal Medicine Critical Care Medicine; ATTEND Internal Medicine Critical Care Medicine
CPT/HCPCS: 31500; 36430; 36600; 70450; 71010; 71045; 74176; 76705; 76937; 80053; 80074; 80178; 80202; 80307; 81001; 82140; 82550; 82552; 82805; 82948; 82962; 83605; 83690; 83735; 84100; 84484; 85025; 85384; 85610; 85730; 86850; 86900; 86901; 86923; 87040; 87086; 87149; 87205; 87641; 90774; 90775; 90784; 92950; 93005; 94002; 94003; 94640; 94656; 94657; 94664; 94665; 96374; 96375; 99285; C1014; C8952; C9113; J0171; J1720; J2060; J2250; J2543; J3370; J7030; J7040; J7050; J7060; J7070; P9016; P9035